=== PATIENT | male | born 1945 | race Two or more races ===

== ENCOUNTER 2017-10-03 17:17 | Emergency (ER) | payer OTHER, MEDICARE ==
--- NOTE | 2017-10-03 17:43 | RADIOLOGY REPORT (SQ) ---
EXAM DESCRIPTION: CT HEAD WITHOUT COMPLETED DATE/TIME: 10/03/2017 5:32 pm REASON FOR STUDY: will go to [facility] after ct stroke alert COMPARISON: 09/05/2016 TECHNIQUE: Axial images acquired through the brain without intravenous contrast. Images reviewed wi th bone, brain and subdural windows. Images stored on PACS. All CT scanners at this facility use dose modulation, iterative reconstruction, and/or weight based d osing when appropriate to reduce radiation dose to as low as reasonably achievable (ALARA). [facility]: Dose Right [facility]: CareDose [facility]: Dose Right [facility]: Teradose 4D [facility]: [employer] Technologies RADIATION DOSE: CT Rad equipment meets quality standard of care and radiation dose reduction techniq ues were employed. CTDIvol: 64.6 mGy. DLP: 1163 mGy-cm. mGy. LIMITATIONS: None. FINDINGS: VENTRICLES: Normal size and contour. CEREBRUM: No masses. No hemorrhage. No midline shift. No evidence for acute infarction. Normal gra y/white matter differentiation. No areas of low density in the white matter. CEREBELLUM: No masses. No hemorrhage. No alteration of density. No evidence for acute infarction. EXTRAAXIAL SPACES: No fluid collections. No masses. ORBITS AND GLOBE: No intra- or extraconal masses. Normal contour of globe without masses. CALVARIUM: No fracture. PARANASAL SINUSES: No fluid or mucosal thickening. SOFT TISSUES: No mass or hematoma. OTHER: No other significant finding. IMPRESSION: NO ACUTE INTRACRANIAL PROCESS. NO SIGNIFICANT CHANGE FROM PRIOR STUDY. EVIDENCE OF ACUTE STROKE: NO. COMMENT: Pertinent positive or negative findings of the imaging study reported as a CRITICAL EXAM t o ER PROVIDER at17:36 on 10/03/2017. Category of Critical Exam: CODE STROKE Quality ID # [id number]: Final reports with documentation of one or more dose reduction techniques (e.g., Au tomated exposure control, adjustment of the mA and/or kV according to patient size, use of iterative reconstruction technique) TECHNICAL DOCUMENTATION: JOB ID: [id number]- All Rights Reserved
--- NOTE | 2017-10-03 17:49 | RADIOLOGY REPORT (SQ) ---
EXAM DESCRIPTION: CHEST SINGLE VIEW COMPLETED DATE/TIME: 10/03/2017 5:31 pm REASON FOR STUDY: will go to [facility] after ct stroke alert COMPARISON: 09/06/2016 EXAM PARAMETERS: NUMBER OF VIEWS: One view. TECHNIQUE: Single frontal radiographic view of the chest acquired. RADIATION DOSE: NA LIMITATIONS: None. FINDINGS: LUNGS AND PLEURA: No new opacities, masses or pneumothorax. No pleural effusion. MEDIASTINUM AND HILAR STRUCTURES: No masses. Contour normal. HEART AND VASCULAR STRUCTURES: Heart stable in size. Normal vasculature. BONES: No acute findings. HARDWARE: Stable. OTHER: No other significant finding. IMPRESSION: NO ACUTE RADIOGRAPHIC FINDING IN THE CHEST. NO SIGNIFICANT CHANGE FROM PRIOR STUDY. TECHNICAL DOCUMENTATION: JOB ID: [id number] [employer]- All Rights Reserved
[2017-10-03 17:56] LABS: INTERNATIONAL RATION (INR) 0.95; PROTHROMBIN TIME 13.4 SEC (11.4-15.4)
[2017-10-03 17:57] LABS: ABSOLUTE EOSINOPHILS # (AUTO) 0.1 10^3/uL (0.0-0.6); ABSOLUTE LYMPHOCYTES (AUTO) 1.4 10^3/uL (0.5-4.7); ABSOLUTE MONOCYTES (AUTO) 0.7 10^3/uL (0.1-1.4); ABSOLUTE NEUT (AUTO) 4.1 10^3/uL (1.7-8.2); BASOPHILS % (AUTO) 0.5 % (0-2); EOSINOPHILS % (AUTO) 1.4 % (0-6); HEMOGLOBIN 13.9 g/dL (13.5-17.0); LYMPHOCYTES % (AUTO) 22.4 % (13-45); MEAN CORPUSCULAR HEMOGLOBIN 30.9 pg (27.0-33.4); MEAN CORPUSCULAR HGB CONC 33.9 g/dL (32.0-36.0); MEAN CORPUSCULAR VOLUME 91 fl (80-97); MONOCYTES % (AUTO) 10.6 % (3-13); PARTIAL THROMBOPLASTIN TIME 27.2 SEC (23.5-35.8); PLATELET COUNT 283 10^3/uL (150-450); RED BLOOD COUNT 4.49 10^6/uL (4.35-5.55); RED CELL DISTRIBUTION WIDTH 13.3 % (11.5-14.0); SEGMENTED NEUTROPHILS % (AUTO) 65.1 % (42-78); TOTAL CELLS COUNTED % (AUTO) 100 %; WHITE BLOOD COUNT 6.3 10^3/uL (4.0-10.5)
[2017-10-03 18:09] LABS: ALANINE AMINOTRANSFERASE 33 U/L (21-72); ALBUMIN 4.9 g/dL (3.5-5.0); ALKALINE PHOSPHATASE 117 U/L (38-126); ANION GAP 14 (5-19); ASPARTATE AMINO TRANSFERASE 28 U/L (17-59); BILIRUBIN,DIRECT 0.2 mg/dL (0.0-0.4); BILIRUBIN,TOTAL 0.4 mg/dL (0.2-1.3); BLOOD UREA NITROGEN 26 mg/dL (7-20); CALCIUM 10.1 mg/dL (8.4-10.2); CARBON DIOXIDE 28 mmol/L (22-30); CHLORIDE 101 mmol/L (98-107); CREATINE KINASE 79 U/L (55-170); GLUCOSE 103 mg/dL (75-110); POTASSIUM 4.3 mmol/L (3.6-5.0); TOTAL PROTEIN 7.7 g/dL (6.3-8.2)
--- NOTE | 2017-10-03 18:11 | ER Document Report ---
ED General - General Mode of Arrival: Ambulatory Information source: Patient TRAVEL OUTSIDE OF THE [place]. IN LAST 30 DAYS: No <SURINDER MENDEZ - Last Filed: 10/03/17 23:44> <JA STANLEY - Last Filed: 10/03/17 23:52> - General Chief Complaint: S/S of Possible Stroke Stated Complaint: POSSIBLE STROKE Time Seen by Provider: 10/03/17 17:48 Notes: Patient is a 71 year old male with a history of PTSD, anxiety, depression, chronic back pain and Parkinson's Disease presents to the emergency department accompanied by due to a syncopal episode. Patient states that he got up this morning to go to the bathroom when felt himself falling and proceeded to have a syncopal episode. states the patient was unconscious for around 1-2 minutes and woke up confused. states she believes the patient has been overwhelmed due to their being a lot of family around lately. Patients associated symptoms include trouble speaking and light headedness. Patient denies any new or changed medication, numbness, nausea, vomiting, fevers, diarrhea, abdominal pain, chest pain, trouble breathing or blurry vision. Patient states that his chronic back pain is more noticeable since the fall. (SURINDER MENDEZ) - Related Data Allergies/Adverse Reactions: No Known Allergies Allergy (Verified 09/05/16 14:34) Past Medical History - General Information source: Patient, Relative - Social History Smoking Status: Never Smoker Cigarette use (# per day): No Chew tobacco use (# tins/day): No Smoking Education Provided: No Frequency of alcohol use: None Family History: Reviewed & Not Pertinent - Past Medical History Cardiac Medical History: Reports: Hx Coronary Artery Disease, Hx Hypercholesterolemia, Hx Hypertension Pulmonary Medical History: Reports: Hx Pneumonia - Aug 2016, Hx Sleep Apnea - CPAP machine at home. Neurological Medical History: Reports: Hx Cerebrovascular Accident - RESIDUAL LEFT SIDED WEAKNESS Endocrine Medical History: Reports: Hx Diabetes Mellitus Type 2 Psychiatric Medical History: Reports: Hx Anxiety, Hx Depression, Hx Post Traumatic Stress Disorder Past Surgical History: Reports: Hx Cardiac Catheterization, Hx Coronary Artery Bypass Graft - 3 VESSEL 08-23-12, Hx Open Heart Surgery, Hx Orthopedic Surgery - Right knee replacement, Left shoulder surgery - Immunizations Hx Diphtheria, Pertussis, Tetanus Vaccination: No Hx Pneumococcal Vaccination: 09/25/14 <SURINDER MENDEZ - Last Filed: 10/03/17 23:44> Review of Systems - Review of Systems Constitutional: No symptoms reported EENT: No symptoms reported Cardiovascular: See HPI, Lightheaded Respiratory: No symptoms reported Gastrointestinal: No symptoms reported Genitourinary: No symptoms reported Male Genitourinary: No symptoms reported Musculoskeletal: No symptoms reported Skin: No symptoms reported Hematologic/Lymphatic: No symptoms reported Neurological/Psychological: See HPI, Lost consciousness -: Yes All other systems reviewed and negative <VANESSASURINDER KRAFT - Last Filed: 10/03/17 23:44> Physical Exam <SURINDER MENDEZ - Last Filed: 10/03/17 23:44> <JA STANLEY - Last Filed: 10/03/17 23:52> - Vital signs Vitals: Pulse Resp BP Pulse Ox 60 11 L 125/72 96 10/03/17 17:37 10/03/17 17:37 10/03/17 17:37 10/03/17 17:37 - Notes Notes: GENERAL: Alert, interacts well. No acute distress. HEAD: Normocephalic, atraumatic. EYES: Pupils equal, round, and reactive to light. Extraocular movements intact. ENT: Oral mucosa moist, tongue midline. NECK: Full range of motion. Supple. Trachea midline. LUNGS: Clear to auscultation bilaterally, no wheezes, rales, or rhonchi. No respiratory distress. HEART: Regular rate and rhythm. No murmurs, gallops, or rubs. ABDOMEN: Soft, non-tender. Non-distended. Bowel sounds present in all 4 quadrants. EXTREMITIES: Moves all 4 extremities spontaneously, tremor in right hand. No edema, radial and dorsalis pedis pulses 2/4 bilaterally. No cyanosis. NEUROLOGICAL: Alert and oriented x3. Intermittent stutter which is baseline according to . Cranial nerves II through XII grossly intact. Biceps and patellar DTRs 2+ bilaterally. PSYCH: Normal affect, normal mood. SKIN: Warm, dry, normal turgor. No rashes or lesions noted. (SURINDER MENDEZ) Course - Laboratory Result Diagrams: 10/03/17 17:40 10/03/17 17:40 <VANESSASURINDER - Last Filed: 10/03/17 23:44> - Laboratory Result Diagrams: 10/03/17 17:40 10/03/17 17:40 <JA STANLEY - Last Filed: 10/03/17 23:52> - Re-evaluation Re-evalutation: 10/03/17 20:20 Is CBC unremarkable, CMP shows slightly increased creatinine compared to baseline but no true significant change, today is 1.43 as opposed to a year ago when it was 1.35. Cardiac enzymes negative, urinalysis shows trace ketones and a specific gravity 1.025 which supports dehydration with intravascular volume depletion. EKG is nonischemic, he has not had an ectopy nor any dysrhythmias while on the monitor. Patient has a third miller in [place], recommended that he follow- up with cardiology within the next 48 hours to have a Holter monitor placed. Patient was hydrated with fluids and will be discharged to home. Suspect orthostatic syncope. No evidence of ischemic cardiac disease. No evidence of seizure. CT scan of the head is negative for any bleed, no suspicion for stroke, chest x- ray negative for any acute process as well. (JA STANLEY) - Vital Signs Vital signs: Temp Pulse Resp BP Pulse Ox 60 19 115/61 97 10/03/17 17:37 10/03/17 20:31 10/03/17 20:31 10/03/17 20:31 - Laboratory Laboratory results interpreted by me: 10/03/17 10/03/17 17:40 19:53 BUN 26 H Creatinine 1.43 H Est GFR ( Amer) 59 L Est GFR (Non-Af Amer) 49 L Urine Ketones TRACE H - EKG Interpretation by Me Additional EKG results interpreted by me: 10/03/17 20:21 EKG shows sinus bradycardia at a rate of 59 with a first-degree AV block, normal axis, no ST segment elevations or depressions, no T-wave inversions, there is nonspecific T-wave flattening in aVL per my interpretation. (JA STANLEY) Discharge <SURINDER MENDEZ - Last Filed: 10/03/17 23:44> <JA STANLEY - Last Filed: 10/03/17 23:52> - Discharge Clinical Impression: Orthostatic syncope, Dehydration Diabetes mellitus type II, controlled Qualifiers: Diabetes mellitus complication status: with neurologic complications Diabetes mellitus complication detail: with unspecified neuropathy Diabetes mellitus termite control service representative insulin use: without termite control service representative use Qualified Code(s): E11.40 - Type 2 diabetes mellitus with diabetic neuropathy, unspecified Hypertension Qualifiers: Hypertension type: essential hypertension Qualified Code(s): I10 - Essential ( primary) hypertension Condition: Stable Disposition: HOME, SELF-CARE Additional Instructions: Today you were very slightly dehydrated and have a slight worsening of your chronic kidney disease, there is no significant change. This will likely resolve with fluids. Please have your kidneys followed up by her primary care provider within the next month. Because you passed out and you are 71 years old I would talk to your third miller about a Holter monitor or an event monitor. This helps to track your heart rate to make sure you are not going into any abnormal or dangerous rhythms. Please discuss this with them within the next 48 hours. Referrals: RJ LUNA MD [Primary Care Provider] - Follow up in 1 week Scribe Attestation: 10/03/17 23:52 I personally performed the services described in the documentation, reviewed and edited the documentation which was dictated to the scribe in my presence, and it accurately records my words and actions. (JA STANLEY) ED NIH Stroke Scale - NIH Stroke Scale *: 1. NIH scale should be completed with appropriate accompanying assessment tools. *: 2. The NIH should reflect what the patient is capable of doing and should not be coached by the clinician. 1a. Level of Consciousness: 0=Alert;keenly responsive -: 1=Drowsy -: 2=Obtunded -: 3=Coma/unresponsive or reflex to noxious stimuli. 1a. Responses: 0 1b. Orientation Questions: a. What month is it? -: b. How old are you? -: 0=Answers both questions correctly. -: 1=Answers one question correctly or patient is intubated or has orotracheal trauma. -: 2=Answers neither question correctly. 1b. Responses: 0 1c. Response to commands: a. Open and close eyes? -: b. Shoe Caser and release hand? -: Credit is given despite weakness. Demonstration of task is permitted. Substitute command if hands cannot be used. -: 0=Performs both tasks correctly -: 1=Performs one task correctly -: 2=Performs neither task correctly 1c. Responses: 0 2. Gaze: Establish eye contact and instruct patient to "Follow my finger" -: 0=Normal -: 1=Partial gaze palsy. Gaze is abnormal in one or both eyes, but where forced deviation or total gaze paresis is not present. -: 2=Forced deviation or total gaze paresis. 2. Responses: 0 3. Visual Schilling: Sees fingers in all four quadrants. -: 0=No visual loss. -: 1=Partial hemianopsia. -: 2=Complete hemianopsia. -: 3=Bilateral hemianopsia (including Cortical blindness) 3. Responses: 0 4. Facial Movement: Instruct patient to: -: a. Show me your teeth -: b. Raise your eyebrows -: c. Close your eyes -: d. Smile -: 0=Normal symmetrical movement -: 1=Minor paralysis (flattened nasolabial fold, asymmetry on smiling). -: 2=Partial paralysis (total or near total paralysis of lower face). -: 3=Complete paralysis of upper and lower face 4. Responses: 0 5. Motor functions (left arm): Alternate sides and extend each arm with palms down (90 degrees if sitting or 45 degrees for supine). -: 0=No drift;limb holds for full 10 seconds. -: 1=Drift; limb holds but drifts down before full 10 seconds, but does not hit bed. -: 2=Some effort against gravity; limb cannot get to or maintain position. -: 3=No effort against gravity; limb falls. -: 4=No movement. -: UN=Amputation, joint fusion, explain in comments. 5. Responses (left arm): 0 5. Motor Functions (right arm): Alternate sides and extend each arm with palms down (90 degrees if sitting or 45 degrees for supine). -: 0=No drift;limb holds for full 10 seconds. -: 1=Drift; limb holds but drifts down before full 10 seconds, but does not hit bed. -: 2=Some effort against gravity; limb cannot get to or maintain position. -: 3=No effort against gravity; limb falls. -: 4=No movement. -: UN=Amputation, joint fusion, explain in comments. 5. Responses (right arm): 0 6. Motor Functions (left leg): With patient lying supine, alternate sides and extend each leg (30 degrees always while supine). -: 0=No drift, leg holds position for full 5 seconds -: 1=Drift; leg falls before full 5 seconds but does not hit bed. -: 2=Some effort against gravity, leg falls to bed but some effort against gravity. -: 3=No effort against gravity, leg falls to bed immediately. -: 4=No movement. -: UN=Amputation, joint fusion; explain in comments. 6. Responses (left leg): 0 6. Motor Functions (right leg): With patient lying supine, alternate sides and extend each leg (30 degrees always while supine). -: 0=No drift, leg holds position for full 5 seconds -: 1=Drift; leg falls before full 5 seconds but does not hit bed. -: 2=Some effort against gravity, leg falls to bed but some effort against gravity. -: 3=No effort against gravity, leg falls to bed immediately. -: 4=No movement. -: UN=Amputation, joint fusion; explain in comments. 6. Responses (right leg): 0 7. Limb Ataxia: With eyes open instruct patient to: -: a. "Touch your finger to your nose". -: b. "Touch your heel to your guan" -: 0=Absent -: 1=Present in one limb. -: 2=Present in two limbs. -: UN=Amputation or joint fusion; explain in comments. 7. Responses: 0 8. Sensory: Test sensation using pinprick or noxious stimuli. Test as many body parts as possible. -: 0=Normal;no sensory loss -: 1=Mile to moderate sensory loss (patient feels pin prick but is less sharp on affected side). -: 2=Severe or total sensory loss. 8. Responses: 0 9. Best Language: Instruct patient to: -: a. "Describe what you see in this picture." -: b. "Name the items in this picture." -: c. "Read these sentences." -: 0=No aphasia, normal -: 1=Mild to moderate aphasia. -: 2=Severe aphasia -: 3=Mute, global aphasia, no usable speech or auditory comprehension. 9. Responses: 0 10. Articulation, Dysarthia: Instruct patient to: -: "Read these words" or "Repeat these words" -: 0=Normal -: 1=Mild to moderate; patient may slur some words but can be understood without difficulty. -: 2=Severe; patients speech so slurred as to be unintelligible in the absence of dysphasia. -: UN=Intubated or other physical barrier, explain in comments. 10. Responses: 0 11. Extinction or inattention: 0=No abnormality -: 1= Visual, tactile, auditory, spatial, or personal inattention or extinction to bilateral simulation in one or the sensory modalities. -: 2=Profound milan-inattention or milan-inattention to more than one modality; does not recognize own hand. 11. Responses: 0 Total Score: 0 <SURINDER MENDEZ - Last Filed: 10/03/17 23:44> ED [employer]/Exc Criteria - Date/Time patient last known well: Date/Time: 10/03/2017 - Inclusion Criteria: 1: Patient presented to ED within 3 hours of acute ischemic stroke symptom onset ? -: Yes 2: Did baseline CT exclude intracranial hemorrhage and/or other risk factors? 3: Is the age of the patient 18 years of age or greater? -: Yes : If any of the above questions are answered "NO" then stop, patient is not a candidate for Alteplase, : If all of the above questions are answered "YES" then continue with Exclusion Criteria. <SURINDER MENDEZ - Last Filed: 10/03/17 23:44> Scribe Documentation - Scribe Written by Scribe:: Sebastian Seals, 10/03/2017 18:28 acting as scribe for Dr.:: Stanley <SURINDER MENDEZ - Last Filed: 10/03/17 23:44>
[2017-10-03 18:21] LABS: CREATINE KINASE MB 0.75 ng/mL (<4.55)
[2017-10-03 18:22] LABS: TROPONIN I < 0.012 ng/mL
--- NOTE | 2017-10-03 18:33 | EKG REPORT ---
SEVERITY:- NORMAL ECG - SINUS RHYTHM : Confirmed by: Isiah Mayers MD 03-Oct-2017 18:32:51
[2017-10-03] MEDS ORDERED: HYDROCODONE/ACETAMINOPHEN 5-325 MG TABLET PO ONE (18:41)
[2017-10-03] MEDS ORDERED: NORMAL SALINE 1000 ML 1,000 ML IV ONE (19:18)
--- NOTE | 2017-10-03 19:19 | RADIOLOGY REPORT (SQ) ---
EXAM DESCRIPTION: L SPINE WHOLE COMPLETED DATE/TIME: 10/03/2017 7:07 pm REASON FOR STUDY: fall, worsened low back pain COMPARISON: None. NUMBER OF VIEWS: Five views including obliques. TECHNIQUE: AP, lateral, oblique, and sacral radiographic images acquired of the lumbar spine. LIMITATIONS: None. FINDINGS: MINERALIZATION: Normal. SEGMENTATION: Normal. No transitional anatomy. ALIGNMENT: Normal. VERTEBRAE: Maintained height. No fracture or worrisome bone lesion. DISCS: Multilevel disc space narrowing with osteophytes, most pronounced at L4-L5. POSTERIOR ELEMENTS: Pedicles and facets are intact. No pars defect or posterior arch defects. Facet arthropathy is present. HARDWARE: None in the spine. PARASPINAL SOFT TISSUES: Normal. PELVIS: Intact as visualized. No fractures or worrisome bone lesions. SI joints intact. OTHER: No other significant finding. IMPRESSION: SPONDYLOSIS WITHOUT BONE LESION OR FRACTURE. TECHNICAL DOCUMENTATION: JOB ID: [id number] [employer]- All Rights Reserved
[2017-10-03 20:11] LABS: APPEARANCE,URINE CLEAR; BILIRUBIN,URINE NEGATIVE (NEGATIVE); COLOR,URINE YELLOW; GLUCOSE, URINE NEGATIVE (NEGATIVE); KETONES,URINE TRACE mg/dL (NEGATIVE); LEUKOCYTE ESTERASE,URINE NEGATIVE (NEGATIVE); NITRITE,URINE NEGATIVE (NEGATIVE); PROTEIN,URINE NEGATIVE (NEGATIVE); URINE SPECIFIC GRAVITY 1.025; UROBILINOGEN,URINE NEGATIVE mg/dL (<2.0)
[2017-10-03 20:58] VITALS: BP 115/61
== END 2017-10-03 20:50 | disposition home or self-care (01) ==
LOC: ER 17:17
DX: E86.0 Dehydration (principal); R55 Syncope and collapse; G20 Parkinson's disease; E11.40 Type 2 diabetes mellitus with diabetic neuropathy, unspecified; I44.0 Atrioventricular block, first degree; M54.9 Dorsalgia, unspecified; G89.29 Other chronic pain; I25.10 Atherosclerotic heart disease of native coronary artery without angina pectoris; I10 Essential (primary) hypertension; Z86.73 Personal history of transient ischemic attack (TIA), and cerebral infarction without residual deficits; Z95.1 Presence of aortocoronary bypass graft
CPT/HCPCS: 93005; 99285; 96360; 36415; 82553; 82550; 85025; 85610; 85730; 80053; 81001; 84484; 71045; 72110; 70450; 93010; J7030

== ENCOUNTER 2017-10-09 09:58 | Inpatient (IN) | payer OTHER, MEDICARE ==
--- NOTE | 2017-10-09 10:48 | ER Document Report ---
ED Respiratory Problem - General Chief Complaint: Shortness Of Breath Stated Complaint: SHORTNESS OF BREATH Time Seen by Provider: 10/09/17 10:32 Information source: Patient TRAVEL OUTSIDE OF THE [place] IN LAST 30 DAYS: No - HPI Patient complains to provider of: Short of breath Notes: Patient is a 71 year old male with a history of PTSD, anxiety, depression, chronic back pain , Parkinson's Disease and cardiac bypass presents to the emergency department accompanied by due to shortness of breath seemed to increase yesterday. He denies history of CHF, myocardial infarction, pulmonary embolus. Since yesterday if they have noticed increasing shortness of breath compared to normal which had been only exertional. He has had cough feels like he has mucus that he cannot clear from his throat but no productive sputum or hemoptysis. There is been no fever and no new pain. As the reports he has some mild dementia she assists with history. She believes he is dizzy as he seems somewhat unsteady. He was here approximately a week ago for a syncopal episode/fall. He denies any new pain currently which includes chest pain. There is no syncope at this point. He does not smoke. Primary care physician is Dr. Gatica. No recent vomiting, diarrhea, dysuria or hematuria. He has no prior history of oxygen dependency. - Related Data Allergies/Adverse Reactions: No Known Allergies Allergy (Verified 09/05/16 14:34) Past Medical History - Social History Smoking Status: Never Smoker Family History: Reviewed & Not Pertinent - Past Medical History Cardiac Medical History: Reports: Hx Coronary Artery Disease, Hx Hypercholesterolemia, Hx Hypertension Pulmonary Medical History: Reports: Hx Pneumonia - Aug 2016, Hx Sleep Apnea - CPAP machine at home. Neurological Medical History: Reports: Hx Cerebrovascular Accident - RESIDUAL LEFT SIDED WEAKNESS Endocrine Medical History: Reports: Hx Diabetes Mellitus Type 2 Renal/ Medical History: Denies: Hx Peritoneal Dialysis GI Medical History: Denies: Hx Pancreatitis Psychiatric Medical History: Reports: Hx Anxiety, Hx Depression, Hx Post Traumatic Stress Disorder Past Surgical History: Reports: Hx Cardiac Catheterization, Hx Coronary Artery Bypass Graft - 3 VESSEL 08-23-12, Hx Open Heart Surgery, Hx Orthopedic Surgery - Right knee replacement, Left shoulder surgery - Immunizations Hx Diphtheria, Pertussis, Tetanus Vaccination: No Hx Pneumococcal Vaccination: 09/25/14 Review of Systems - Review of Systems -: Yes All other systems reviewed and negative Physical Exam - Vital signs Vitals: Temp Pulse BP Pulse Ox 100.0 F 64 152/119 H 94 10/09/17 10:04 10/09/17 10:04 10/09/17 10:04 10/09/17 10:04 Interpretation: Hypertensive - Notes Notes: Physical Exam: GENERAL: VS as per nursing doc. Well-appearing, well-nourished and in no acute distress. Oxygen saturation 91% on 3 L/min nasal cannula HEAD: Atraumatic, normocephalic. EYES: Pupils equal round and reactive to light, extraocular movements intact, sclera anicteric, moderate bilateral conjunctival injection without discharge. ENT: Nares patent, oropharynx clear without exudates. Moist mucous membranes. NECK: Normal range of motion, supple without lymphadenopathy. LUNGS: Breath sounds are decreased bilaterally with coarseness and some right- sided rales noted. HEART: Normal S1S2. Regular rate and rhythm without murmurs. Equal peripheral pulses. ABDOMEN: Soft, non-tender. EXTREMITIES: Normal range of motion. No calf tenderness. Negative Homans. Trace bilateral pitting edema. NEUROLOGICAL: Cranial nerves grossly intact. Normal speech. Normal sensory and motor exams. No gross cerebellar abnormalities. Though he is alert, he has poor recall. PSYCH: Normal mood, normal affect. SKIN: Warm, dry, no cyanosis, no splinter hemorrhages. Cap refill < 2 sec. Course - Re-evaluation Re-evalutation: 10/09/17 14:[address] Nieves contacted and will evaluate for admission. 10/09/17 14:32 - Vital Signs Vital signs: Temp Pulse Resp BP Pulse Ox 100.0 F 64 152/119 H 98 10/09/17 10:04 10/09/17 10:04 10/09/17 10:04 10/09/17 10:26 - Laboratory Result Diagrams: 10/09/17 10:34 10/09/17 10:34 Laboratory results interpreted by me: 10/09/17 10/09/17 10/09/17 10:34 10:34 10:34 RBC 3.44 L Hgb 10.7 L Hct 31.8 L Seg Neutrophils % 86.6 H Lymphocytes % 6.0 L Absolute Lymphocytes 0.4 L D-Dimer Carbonic Acid ABG pH ABG pCO2 ABG pO2 ABG HCO3 ABG Total CO2 ABG O2 Saturation Chloride 108 H BUN 22 H Creatinine 1.38 H Est GFR (Non-Af Amer) 51 L Glucose 139 H ALT 20 L Alkaline Phosphatase 134 H NT-Pro-B Natriuret Pep 9430 H 10/09/17 10/09/17 10:34 11:57 RBC Hgb Hct Seg Neutrophils % Lymphocytes % Absolute Lymphocytes D-Dimer 1.68 H Carbonic Acid 0.73 L ABG pH 7.52 H ABG pCO2 24.4 L ABG pO2 55.8 L ABG HCO3 19.6 L ABG Total CO2 20.3 L ABG O2 Saturation 92.6 L Chloride BUN Creatinine Est GFR (Non-Af Amer) Glucose ALT Alkaline Phosphatase NT-Pro-B Natriuret Pep Discharge - Discharge Clinical Impression: Dyspnea, Hypoxia Condition: Fair Disposition: ADMITTED INPATIENT Admitting Provider: Hospitalist Unit Admitted: Telemetry Referrals: RJ BROWN MD [Primary Care Provider] - Follow up as needed
[2017-10-09] MEDS ORDERED: IPRATROPIUM/ALBUTEROL 0.5-2.5 MG/3 ML AMPUL NEB ONE (10:49)
--- NOTE | 2017-10-09 11:28 | RADIOLOGY REPORT (SQ) ---
EXAM DESCRIPTION: CHEST SINGLE VIEW COMPLETED DATE/TIME: 10/09/2017 11:20 am REASON FOR STUDY: Dyspnea COMPARISON: 10/03/2017 NUMBER OF VIEWS: One view. TECHNIQUE: Single frontal radiographic view of the chest acquired. LIMITATIONS: None. FINDINGS: LUNGS AND PLEURA: No opacities, masses or pneumothorax. No pleural effusion. MEDIASTINUM AND HILAR STRUCTURES: No masses or contour abnormality. HEART AND VASCULATURE: Cardiac enlargement. Va mild vascular congestion. BONES: No acute findings. HARDWARE: Stable. OTHER: No other significant finding. IMPRESSION: CARDIAC ENLARGEMENT. MILD VASCULAR CONGESTION. TECHNICAL DOCUMENTATION: JOB ID: [id number] [employer]- All Rights Reserved
[2017-10-09 11:36] LABS: ALANINE AMINOTRANSFERASE 20 U/L (21-72); ALBUMIN 3.7 g/dL (3.5-5.0); ALKALINE PHOSPHATASE 134 U/L (38-126); ANION GAP 14 (5-19); ASPARTATE AMINO TRANSFERASE 45 U/L (17-59); BILIRUBIN,DIRECT 0.4 mg/dL (0.0-0.4); BLOOD UREA NITROGEN 22 mg/dL (7-20); CALCIUM 9.6 mg/dL (8.4-10.2); CARBON DIOXIDE 22 mmol/L (22-30); CHLORIDE 108 mmol/L (98-107); GLUCOSE 139 mg/dL (75-110); POTASSIUM 4.1 mmol/L (3.6-5.0); SODIUM 144.3 mmol/L (137-145); TOTAL PROTEIN 6.4 g/dL (6.3-8.2)
[2017-10-09 11:39] LABS: ABSOLUTE LYMPHOCYTES (AUTO) 0.4 10^3/uL (0.5-4.7); ABSOLUTE MONOCYTES (AUTO) 0.4 10^3/uL (0.1-1.4); ABSOLUTE NEUT (AUTO) 5.5 10^3/uL (1.7-8.2); BASOPHILS % (AUTO) 0.4 % (0-2); EOSINOPHILS % (AUTO) 0.1 % (0-6); HEMATOCRIT 31.8 % (37.9-51.0); HEMOGLOBIN 10.7 g/dL (13.5-17.0); MEAN CORPUSCULAR HEMOGLOBIN 31.2 pg (27.0-33.4); MEAN CORPUSCULAR HGB CONC 33.8 g/dL (32.0-36.0); MEAN CORPUSCULAR VOLUME 92 fl (80-97); MONOCYTES % (AUTO) 6.9 % (3-13); PLATELET COUNT 226 10^3/uL (150-450); RED BLOOD COUNT 3.44 10^6/uL (4.35-5.55); RED CELL DISTRIBUTION WIDTH 13.4 % (11.5-14.0); SEGMENTED NEUTROPHILS % (AUTO) 86.6 % (42-78); TOTAL CELLS COUNTED % (AUTO) 100 %; WHITE BLOOD COUNT 6.4 10^3/uL (4.0-10.5)
[2017-10-09 11:48] LABS: TROPONIN I 0.017 ng/mL
[2017-10-09 12:27] LABS: ARTERIAL BLOOD BASE EXCESS -2.2 mmol/L; ARTERIAL BLOOD FIO2 3L; ARTERIAL BLOOD H2CO3 0.73 mmol/L (1.05-1.35); ARTERIAL BLOOD HCO3 19.6 mmol/L (20-26); ARTERIAL BLOOD O2 SATURATION 92.6 % (94-98); ARTERIAL BLOOD PCO2 24.4 mmHg (35-45); ARTERIAL BLOOD PH 7.52 (7.35-7.45); ARTERIAL BLOOD PO2 55.8 mmHg (80-100); ARTERIAL BLOOD TOTAL CO2 20.3 mmol/L (23-27)
--- NOTE | 2017-10-09 13:50 | RADIOLOGY REPORT (SQ) ---
EXAM DESCRIPTION: CTA CHEST COMPLETED DATE/TIME: 10/09/2017 1:35 pm REASON FOR STUDY: Dyspnea, Elevated D-Dimer COMPARISON: 09/06/2015 TECHNIQUE: CT scan of the chest performed using helical scanning technique with dynamic intravenous contrast injection. Images reviewed with lung, soft tissue and bone windows. Reconstructed coronal and sagittal MPR images reviewed. Additional 3 dimensional post-processing performed to develop Maximal Intensity Projection images (MA P). All images stored on PACS. All CT scanners at this facility use dose modulation, iterative reconstruction, and/or weight based d osing when appropriate to reduce radiation dose to as low as reasonably achievable (ALARA). [facility]: Dose Right [facility]: CareDose [facility]: Dose Right [facility]: Teradose 4D [facility]: [employer] CONTRAST TYPE AND DOSE: contrast/concentration: Isovue 370.00 mg/ml; Total Contrast Delivered: 79.0 ml; Total Saline Delivered: 97.0 ml Contrast bolus optimized for the pulmonary arteries. Not diagnostic for the aorta. RENAL FUNCTION: BUN 22 creatinine 1.4 RADIATION DOSE: CT Rad equipment meets quality standard of care and radiation dose reduction techniq ues were employed. CTDIvol: 16.5 - 26.2 mGy. DLP: 961 mGy-cm. . LIMITATIONS: Motion. FINDINGS: LUNGS AND PLEURA: Subsegmental atelectasis dependent lower lobes. Trace right pleural eff usion. AORTA AND GREAT VESSELS: No aneurysm. Contrast bolus not optimized for the aorta. HEART: No pericardial effusion. Cardiomegaly. PULMONARY ARTERIES: No emboli visualized in the main pulmonary arteries or the segmental branches. HILAR AND MEDIASTINAL STRUCTURES: No identified masses or abnormal nodes. HARDWARE: None in the chest. UPPER ABDOMEN: No significant findings. Limited exam. THYROID AND OTHER SOFT TISSUES: No masses. No adenopathy. BONES: No acute or significant finding. 3D MIPS: Confirm above findings. OTHER: No other significant finding. IMPRESSION: No evidence of pulmonary embolus. COMMENT: Quality ID # [id number]: Final reports with documentation of one or more dose reduction techniques (e.g., Automated exposure control, adjustment of the mA and/or kV according to patient size, use of iterative reconstruction technique) TECHNICAL DOCUMENTATION: JOB ID: [id number] [employer]- All Rights Reserved
[2017-10-09] MEDS ORDERED: METHYLPREDNISOLONE INJ 125 MG/2 ML SDV IV ONE (14:07)
[2017-10-09] MEDS ORDERED: OXYCODONE-ACETAMINOPHEN 5-325 MG TABLET PO PRN (14:30)
[2017-10-09] MEDS ORDERED: FUROSEMIDE INJ/PF 20 MG/2 ML SDV IV SCH (14:30)
[2017-10-09] MEDS ORDERED: ZOLPIDEM TARTRATE 5 MG TABLET PO PRN (14:30)
[2017-10-09] MEDS ORDERED: ACETAMINOPHEN 325 MG TABLET PO PRN (14:30)
[2017-10-09] MEDS ORDERED: ONDANSETRON HCL INJ/PF 4 MG/2 ML SDV IV PRN (14:30)
--- NOTE | 2017-10-09 15:24 | PDOC H&P ---
History of Present Illness Admission Date/PCP: RJ BROWN MD Patient complains of: Shortness of breath worse since yesterday History of Present Illness: BAYLEE ROLLINS is a 71 year old male presents to ED accompanied by the who is the primary provider of complaints. Accordingly patient had been having progressive shortness of breath since yesterday. Patient also had been having nonproductive cough. Patient also had been complaining to with chills. Otherwise no other complaints voiced by . [place] arrival to emergency room pulse ox was 50% and patient required to be placed on 3 L of O2. Patient does carry a history of sleep apnea and accordingly he uses the CPAP on a regular basis. Patient has history of diabetes, congestive heart failure, Parkinson's disease and hypertension. He did have three-vessel CABG however cannot tell if he indeed had a heart attack. Due to comorbidities, presentation and demonstration on elevated BNP the hospitalist service was contacted and prompted to admit for further management. Past Medical History Cardiac Medical History: Reports: Congestive Heart Failure, Coronary Artery Disease, Hyperlipidema, Hypertension Pulmonary Medical History: Reports: Pneumonia - Aug 2016, Sleep Apnea - CPAP machine at home. EENT Medical History: Reports: None Neurological Medical History: Reports: Other - TIA, Parkinson's disease Endocrine Medical History: Reports: Diabetes Mellitus Type 2 Denies: Hypothyroidism Renal/ Medical History: Reports: Chronic Kidney Disease Malignancy Medical History: Denies: Breast Cancer, Cervical Cancer Musculoskeltal Medical History: Reports: Arthritis Skin Medical History: Reports: None Psychiatric Medical History: Reports: Depression, Post Traumatic Stress Disorder Traumatic Medical History: Reports: None Hematology: Reports: Anemia Denies: Hemophilia, Sickle Cell Disease Infectious Medical History: Reports: None Past Surgical History Past Surgical History: Reports: Cardiac Catheterization, Coronary Artery Bypass Graft - 3 VESSEL 08-23-12, Orthopedic Surgery - Right knee replacement, Left shoulder surgery Social History Information Source: Relative Lives with: Spouse/Significant other Smoking Status: Never Smoker Frequency of Alcohol Use: None Hx Recreational Drug Use: No Drugs: None Hx Prescription Drug Abuse: No - Advance Directive Resuscitation Status: Full Code Family History Family History: CAD, DM, Hypertension, Malignancy Parental Family History Reviewed: Yes Children Family History Reviewed: Yes Sibling(s) Family History Reviewed.: Yes Medication/Allergy Home Medications: Atorvastatin Calcium [Lipitor 40 mg Tablet] 40 mg PO QHS 10/09/17 Brexpiprazole [Rexulti] 1 mg PO DAILY 10/09/17 Bupropion HCl [Bupropion HCl Sr] 100 mg PO DAILY 10/09/17 Carbidopa/Levodopa [Sinemet 25-100 mg Tablet] 2 tab PO Q8 10/09/17 Clopidogrel Bisulfate [Plavix 75 mg Tablet] 75 mg PO DAILY 10/09/17 Fluoxetine HCl [Prozac] 40 mg PO Q12 10/09/17 Gabapentin [Neurontin 300 mg Capsule] 300 mg PO Q12 10/09/17 Memantine HCl [Namenda Xr] 28 mg PO DAILY 10/09/17 Metoprolol Tartrate [Lopressor 50 mg Tablet] 50 mg PO DAILY 10/09/17 Oxcarbazepine [Trileptal] 300 mg PO Q12 10/09/17 Sitagliptin Phosphate [Januvia 50 mg Tablet] 50 mg PO DAILY 10/09/17 Tolterodine Tartrate [Detrol La] 4 mg PO DAILY 10/09/17 Allergies/Adverse Reactions: No Known Allergies Allergy (Verified 09/05/16 14:34) Review of Systems ROS unobtainable: Due to mental status Physical Exam Vital Signs: Temp Pulse Resp BP Pulse Ox 100.0 F 64 152/119 H 98 10/09/17 10:04 10/09/17 10:04 10/09/17 10:04 10/09/17 10:26 Intake & Output 10/08/17 10/09/17 10/10/17 06:59 06:59 06:59 Weight 97.4 kg General appearance: PRESENT: cooperative, mild distress, morbidly obese Head exam: PRESENT: atraumatic, normocephalic Eye exam: PRESENT: conjunctiva pink, EOMI, PERRLA Ear exam: PRESENT: normal external ear exam Mouth exam: PRESENT: moist Neck exam: PRESENT: full ROM, lymphadenopathy. ABSENT: JVD, tenderness Respiratory exam: PRESENT: crackles, decreased breath sounds Cardiovascular exam: PRESENT: RRR. ABSENT: diastolic murmur, systolic murmur GI/Abdominal exam: PRESENT: normal bowel sounds, soft. ABSENT: guarding, tenderness Rectal exam: PRESENT: deferred Extremities exam: PRESENT: full ROM. ABSENT: joint swelling, pedal edema Musculoskeletal exam: PRESENT: ambulatory Neurological exam: PRESENT: alert, oriented to person, oriented to place, CN II- XII grossly intact Psychiatric exam: PRESENT: anxious Skin exam: PRESENT: intact, normal color Results Laboratory Results: 10/09/17 10:34 10/09/17 10:34 10/09/17 10/09/17 10/09/17 10:34 10:34 11:57 WBC 6.4 RBC 3.44 L Hgb 10.7 L Hct 31.8 L MCV 92 MCH 31.2 MCHC 33.8 RDW 13.4 Plt Count 226 Seg Neutrophils % 86.6 H Lymphocytes % 6.0 L Monocytes % 6.9 Eosinophils % 0.1 Basophils % 0.4 Absolute Neutrophils 5.5 Absolute Lymphocytes 0.4 L Absolute Monocytes 0.4 Absolute Eosinophils 0.0 Absolute Basophils 0.0 Carbonic Acid 0.73 L HCO3/H2CO3 Ratio 26:1 ABG pH 7.52 H ABG pCO2 24.4 L ABG pO2 55.8 L ABG HCO3 19.6 L ABG O2 Saturation 92.6 L ABG Base Excess -2.2 FiO2 3L Sodium 144.3 Potassium 4.1 Chloride 108 H Carbon Dioxide 22 Anion Gap 14 BUN 22 H Creatinine 1.38 H Est GFR ( Amer) > 60 Est GFR (Non-Af Amer) 51 L Glucose 139 H Calcium 9.6 Total Bilirubin 1.0 AST 45 ALT 20 L Alkaline Phosphatase 134 H Total Protein 6.4 Albumin 3.7 10/09/17 10:34 Troponin I 0.017 NT-Pro-B Natriuret Pep 9430 H Impressions: Chest X-Ray 10/09/17 10:48 IMPRESSION: CARDIAC ENLARGEMENT. MILD VASCULAR CONGESTION. Chest/Abdomen CTA 10/09/17 12:47 IMPRESSION: No evidence of pulmonary embolus. Assessment & Plan - Diagnosis (1) CHF (congestive heart failure) Qualifiers: Congestive heart failure type: unspecified Congestive heart failure chronicity: acute Qualified Code(s): I50.9 - Heart failure, unspecified Is this a current diagnosis for this admission?: Yes Plan: Will order an echocardiogram to determine whether systolic versus diastolic. Patient to be placed on IV Lasix, Norvasc, lisinopril , nitropaste and will hold of beta-blockade due to mildly heart rate. (2) Anemia Qualifiers: Anemia type: unspecified type Qualified Code(s): D64.9 - Anemia, unspecified Is this a current diagnosis for this admission?: Yes Plan: To pursue anemia panel (3) Acute respiratory failure with hypoxemia Is this a current diagnosis for this admission?: Yes Plan: To provide oxygen supplementation and will place on CPAP (4) CKD (chronic kidney disease) stage 2, GFR 60-89 ml/min Is this a current diagnosis for this admission?: Yes Plan: Long-standing and will trend (5) Diabetes Qualifiers: Diabetes mellitus type: type 2 Diabetes mellitus complication status: with kidney complications Diabetes mellitus complication detail: with chronic kidney disease Diabetes mellitus fdc insulin use: without fdc use Chronic kidney disease stage: stage 2 (mild) Qualified Code(s): E11.22 - Type 2 diabetes mellitus with diabetic chronic kidney disease; N18.2 - Chronic kidney disease, stage 2 (mild); N18.2 - Chronic kidney disease, stage 2 (mild) Is this a current diagnosis for this admission?: Yes Plan: Patient is on Januvia as outpatient. Will place on Humalog sliding scale with bedside glucose before meals and at bedtime (6) PTSD (post-traumatic stress disorder) Is this a current diagnosis for this admission?: Yes Plan: To continue outpatient regimen (7) Hypertensive urgency Is this a current diagnosis for this admission?: Yes Plan: To place on Norvasc, lisinopril, Nitropaste and follow up response - Time Time Spent: 50 to 70 Minutes Medications reviewed and adjusted accordingly: Yes Anticipated discharge: Home Within: within 72 hours - Inpatient Certification Based on my medical assessment, after consideration of the patient's comorbidities, presenting symptoms, or acuity I expect that the services needed warrant INPATIENT care.: Yes I certify that my determination is in accordance with my understanding of Medicare's requirements for reasonable and necessary INPATIENT services [42 CFR 412.3e].: Yes Medical Necessity: Significant Comorbidiites Make Outpatient Treatment Too Risky - IV Lasix, Need For Continuous Telemetry Monitoring
[2017-10-09] MEDS ORDERED: NITROGLYCERIN 2% OINTMENT 1 GM PACKET TP ONE (16:00)
[2017-10-09] MEDS ORDERED: LISINOPRIL 10 MG TABLET PO ONE (16:00)
[2017-10-09] MEDS ORDERED: AMLODIPINE BESYLATE 5 MG TABLET PO ONE (16:00)
[2017-10-09 16:04] LABS: A TYPE INFLUENZA AG POSITIVE (NEGATIVE); B INFLUENZA AG NEGATIVE (NEGATIVE)
--- NOTE | 2017-10-09 17:22 | EKG REPORT ---
SEVERITY:- ABNORMAL ECG - ACCELERATED JUNCTIONAL ESCAPE RHYTHM : Confirmed by: Jacquelin Beckwith 09-Oct-2017 17:21:28
[2017-10-09] MEDS: FUROSEMIDE INJ/PF 40 MG/4 ML SDV IV SCH (18:58)
[2017-10-09 19:15] LABS: APPEARANCE,URINE CLEAR; BILIRUBIN,URINE NEGATIVE (NEGATIVE); COLOR,URINE YELLOW; GLUCOSE, URINE NEGATIVE (NEGATIVE); KETONES,URINE NEGATIVE (NEGATIVE); LEUKOCYTE ESTERASE,URINE NEGATIVE (NEGATIVE); NITRITE,URINE NEGATIVE (NEGATIVE); PROTEIN,URINE 30 mg/dL (NEGATIVE); URINE SPECIFIC GRAVITY 1.058
[2017-10-09] MEDS: NITROGLYCERIN 2% OINTMENT 1 GM PACKET TP SCH (23:55)
[2017-10-09] MEDS: HEPARIN SOD (PORCINE) 5,000 UNIT/ML 1 ML SYRINGE SUBCUT SCH (23:56)
[2017-10-10] MEDS: NITROGLYCERIN 2% OINTMENT 1 GM PACKET TP SCH ×3 (04:52→17:35)
[2017-10-10] MEDS: HEPARIN SOD (PORCINE) 5,000 UNIT/ML 1 ML SYRINGE SUBCUT SCH ×3 (04:52→21:11)
[2017-10-10] MEDS: FUROSEMIDE INJ/PF 40 MG/4 ML SDV IV SCH ×2 (04:52→17:38)
[2017-10-10 06:32] LABS: ABSOLUTE RETICS # 0.071 10^6/uL (0.028-0.122); RETICULOCYTE COUNT (AUTO) 2.03 % (0.66-2.85)
[2017-10-10 07:01] LABS: IRON(TIBC) 15.4 ug/dL (49-181); MAGNESIUM 2.4 mg/dL (1.6-2.3)
[2017-10-10 08:55] LABS: FOLATE > 20.00 ng/mL (>2.76)
[2017-10-10] MEDS ORDERED: SORBITOL 70% SOLUTION 30 ML UDC PO PRN (09:15)
[2017-10-10] MEDS ORDERED: BENZONATATE 100 MG CAPSULE PO PRN (09:15)
[2017-10-10] MEDS ORDERED: (PENDING PHARMACY ID) (Oxcarbazepine [Trileptal] 300 MG) PO SCH (10:00)
[2017-10-10] MEDS ORDERED: (PENDING PHARMACY ID) (Bupropion Hcl [Bupropion Hcl Sr] 100 MG) PO SCH (10:00)
[2017-10-10] MEDS ORDERED: (PENDING PHARMACY ID) (Tolterodine Tartrate [Detrol La] 4 MG) PO SCH (10:00)
[2017-10-10] MEDS ORDERED: (PENDING PHARMACY ID) (Memantine Hcl [Namenda Xr] 28 MG) PO SCH (10:00)
[2017-10-10] MEDS ORDERED: (PENDING PHARMACY ID) (Brexpiprazole [Rexulti] 1 MG) PO SCH (10:00)
[2017-10-10] MEDS: POLYETHYLENE GLYCOL 3350 POWDER 17 GM/1 PACKET PO SCH (10:56)
[2017-10-10] MEDS: LISINOPRIL 10 MG TABLET PO SCH (10:57)
[2017-10-10] MEDS: GUAIFENESIN 600 MG TABLET.SA PO SCH ×2 (10:57→21:11)
[2017-10-10] MEDS: GABAPENTIN 300 MG CAPSULE PO SCH ×2 (10:57→21:10)
[2017-10-10] MEDS: FLUOXETINE HCL 20 MG CAPSULE PO SCH ×2 (11:00→21:10)
[2017-10-10] MEDS: TOLTERODINE TARTRATE 1 MG TABLET PO SCH ×2 (11:01→21:10)
[2017-10-10] MEDS: CLOPIDOGREL BISULFATE 75 MG TABLET PO SCH (11:02)
[2017-10-10] MEDS: BUPROPION HCL 100 MG TABLET PO SCH ×2 (11:02→17:37)
[2017-10-10] MEDS: AMLODIPINE BESYLATE 5 MG TABLET PO SCH (11:02)
[2017-10-10] MEDS: OXCARBAZEPINE 150 MG TABLET PO SCH ×2 (11:02→21:10)
--- NOTE | 2017-10-10 13:08 | PDOC PROGRESS REPORT ---
Subjective Progress Note for:: 10/10/17 Subjective:: She relates that breathing is better. He complains of having cough with some white phlegm and constipation. Review of systems All organ systems evaluated and negative except as in subjective All significant laboratories and diagnostics have been reviewed Reason For Visit: ACUTE CHF,ANEMIA Physical Exam Vital Signs: Temp Pulse Resp BP Pulse Ox 97.9 F 51 L 28 H 142/88 H 97 10/10/17 08:06 10/10/17 08:06 10/10/17 08:06 10/10/17 08:06 10/10/17 08:06 Intake & Output 10/09/17 10/10/17 10/11/17 06:59 06:59 06:59 Intake Total 25 Output Total 350 Balance -325 Weight 97.9 kg General appearance: PRESENT: no acute distress, cooperative, obese Head exam: PRESENT: atraumatic, normocephalic Eye exam: PRESENT: EOMI, PERRLA Ear exam: PRESENT: normal external ear exam, TM's normal bilaterally Mouth exam: PRESENT: moist, neck supple Neck exam: PRESENT: full ROM, lymphadenopathy, tenderness. ABSENT: JVD Respiratory exam: PRESENT: clear to auscultation norm. ABSENT: tachypnea, unlabored Cardiovascular exam: PRESENT: bradycardia, RRR. ABSENT: diastolic murmur, systolic murmur Vascular exam: PRESENT: normal capillary refill GI/Abdominal exam: PRESENT: normal bowel sounds, soft. ABSENT: tenderness Extremities exam: PRESENT: full ROM. ABSENT: joint swelling, pedal edema Musculoskeletal exam: PRESENT: ambulatory Neurological exam: PRESENT: alert, awake, oriented to person, oriented to place , oriented to time Psychiatric exam: PRESENT: appropriate affect, normal mood Skin exam: PRESENT: intact, normal color Results Laboratory Results: 10/09/17 10/10/17 10/10/17 19:00 05:53 05:53 Retic Count (auto) 2.03 Absolute Retic 0.071 Magnesium 2.4 H Iron 15.4 L TIBC 264 % Saturation 6 Ferritin 204.00 Vitamin B12 395.0 Folate > 20.00 TSH Urine Color YELLOW Urine Appearance CLEAR Urine pH 6.0 Ur Specific [place] 1.058 Urine Protein 30 H Urine Glucose (UA) NEGATIVE Urine Ketones NEGATIVE Urine Blood NEGATIVE Urine Nitrite NEGATIVE Ur Leukocyte Esterase NEGATIVE Urine WBC (Auto) 1 Urine RBC (Auto) 0 10/10/17 05:53 Retic Count (auto) Absolute Retic Magnesium Iron TIBC % Saturation Ferritin Vitamin B12 Folate TSH 1.41 Urine Color Urine Appearance Urine pH Ur Specific [place] Urine Protein Urine Glucose (UA) Urine Ketones Urine Blood Urine Nitrite Ur Leukocyte Esterase Urine WBC (Auto) Urine RBC (Auto) 10/09/17 10/09/17 16:18 22:24 Troponin I 0.018 0.027 Impressions: Chest X-Ray 10/09/17 10:48 IMPRESSION: CARDIAC ENLARGEMENT. MILD VASCULAR CONGESTION. Chest/Abdomen CTA 10/09/17 12:47 IMPRESSION: No evidence of pulmonary embolus. Assessment & Plan - Diagnosis (1) CHF (congestive heart failure) Qualifiers: Congestive heart failure type: unspecified Congestive heart failure chronicity: acute Qualified Code(s): I50.9 - Heart failure, unspecified Is this a current diagnosis for this admission?: Yes Plan: Echocardiogram had been ordered to determine whether systolic versus diastolic and is pending. Continue IV Lasix, Norvasc, lisinopril , nitropaste. Continue holding beta-linda due to bradycardia which is likely due to SSRI. Clinically improving. (2) Anemia Qualifiers: Anemia type: unspecified type Qualified Code(s): D64.9 - Anemia, unspecified Is this a current diagnosis for this admission?: Yes Plan: Anemia panel results noted. More consistent of chronic disease (3) Acute respiratory failure with hypoxemia Is this a current diagnosis for this admission?: Yes Plan: Continue CPAP at bedtime and would request nurse to wean off oxygen as tolerated (4) CKD (chronic kidney disease) stage 2, GFR 60-89 ml/min Is this a current diagnosis for this admission?: Yes Plan: Long-standing and stable. To trend (5) Diabetes Qualifiers: Diabetes mellitus type: type 2 Diabetes mellitus complication status: with kidney complications Diabetes mellitus complication detail: with chronic kidney disease Diabetes mellitus long-term insulin use: without long-term use Chronic kidney disease stage: stage 2 (mild) Qualified Code(s): E11.22 - Type 2 diabetes mellitus with diabetic chronic kidney disease; N18.2 - Chronic kidney disease, stage 2 (mild); N18.2 - Chronic kidney disease, stage 2 (mild) Is this a current diagnosis for this admission?: Yes Plan: Patient is on Januvia as outpatient. Continue Humalog sliding scale with bedside glucose before meals and at bedtime (6) PTSD (post-traumatic stress disorder) Is this a current diagnosis for this admission?: Yes Plan: To continue outpatient regimen (7) Hypertensive urgency Is this a current diagnosis for this admission?: Yes Plan: Resolved and to continue adjusting antihypertensive medication (8) Constipation Qualifiers: Constipation type: unspecified constipation type Qualified Code(s): K59.00 - Constipation, unspecified Is this a current diagnosis for this admission?: Yes Plan: To place on bowel regimen (9) Parkinson disease Is this a current diagnosis for this admission?: Yes Plan: Continue outpatient regimen - Time Time Spent with patient: 15-24 minutes Medications reviewed and adjusted accordingly: Yes Anticipated discharge: Home Within: within 72 hours - Inpatient Certification Based on my medical assessment, after consideration of the patient's comorbidities, presenting symptoms, or acuity I expect that the services needed warrant INPATIENT care.: Yes I certify that my determination is in accordance with my understanding of Medicare's requirements for reasonable and necessary INPATIENT services [42 CFR 412.3e].: Yes Medical Necessity: Need Close Monitoring Due to Risk of Patient Decompensation, Need For Continuous Telemetry Monitoring - IV diuresis
[2017-10-10] MEDS: ATORVASTATIN CALCIUM 40 MG TABLET PO SCH (21:10)
[2017-10-11] MEDS: NITROGLYCERIN 2% OINTMENT 1 GM PACKET TP SCH ×4 (00:38→18:08)
[2017-10-11] MEDS: HEPARIN SOD (PORCINE) 5,000 UNIT/ML 1 ML SYRINGE SUBCUT SCH ×3 (05:50→22:15)
[2017-10-11] MEDS: FUROSEMIDE INJ/PF 40 MG/4 ML SDV IV SCH ×2 (05:50→18:09)
[2017-10-11 06:23] LABS: ABSOLUTE LYMPHOCYTES (AUTO) 0.9 10^3/uL (0.5-4.7); ABSOLUTE MONOCYTES (AUTO) 0.4 10^3/uL (0.1-1.4); ABSOLUTE NEUT (AUTO) 4.3 10^3/uL (1.7-8.2); BASOPHILS % (AUTO) 0.3 % (0-2); HEMATOCRIT 36.3 % (37.9-51.0); HEMOGLOBIN 12.2 g/dL (13.5-17.0); LYMPHOCYTES % (AUTO) 16.5 % (13-45); MEAN CORPUSCULAR HEMOGLOBIN 30.8 pg (27.0-33.4); MEAN CORPUSCULAR HGB CONC 33.6 g/dL (32.0-36.0); MEAN CORPUSCULAR VOLUME 92 fl (80-97); MONOCYTES % (AUTO) 7.7 % (3-13); PLATELET COUNT 206 10^3/uL (150-450); RED BLOOD COUNT 3.96 10^6/uL (4.35-5.55); RED CELL DISTRIBUTION WIDTH 13.5 % (11.5-14.0); SEGMENTED NEUTROPHILS % (AUTO) 75.5 % (42-78); TOTAL CELLS COUNTED % (AUTO) 100 %; WHITE BLOOD COUNT 5.6 10^3/uL (4.0-10.5)
[2017-10-11 06:35] LABS: ANION GAP 17 (5-19); BLOOD UREA NITROGEN 25 mg/dL (7-20); CALCIUM 9.2 mg/dL (8.4-10.2); CARBON DIOXIDE 21 mmol/L (22-30); CHLORIDE 106 mmol/L (98-107); GLUCOSE 114 mg/dL (75-110); POTASSIUM 3.8 mmol/L (3.6-5.0)
[2017-10-11] MEDS: POLYETHYLENE GLYCOL 3350 POWDER 17 GM/1 PACKET PO SCH (10:29)
[2017-10-11] MEDS: TOLTERODINE TARTRATE 1 MG TABLET PO SCH ×2 (10:30→22:14)
[2017-10-11] MEDS: LISINOPRIL 10 MG TABLET PO SCH (10:30)
[2017-10-11] MEDS: AMLODIPINE BESYLATE 5 MG TABLET PO SCH (10:30)
[2017-10-11] MEDS: FLUOXETINE HCL 20 MG CAPSULE PO SCH ×2 (10:30→22:15)
[2017-10-11] MEDS: BUPROPION HCL 100 MG TABLET PO SCH ×2 (10:31→18:06)
[2017-10-11] MEDS: GUAIFENESIN 600 MG TABLET.SA PO SCH ×2 (10:31→22:15)
[2017-10-11] MEDS: GABAPENTIN 300 MG CAPSULE PO SCH ×2 (10:31→22:15)
[2017-10-11] MEDS: CLOPIDOGREL BISULFATE 75 MG TABLET PO SCH (10:31)
[2017-10-11] MEDS: OXCARBAZEPINE 150 MG TABLET PO SCH ×2 (10:31→22:15)
--- NOTE | 2017-10-11 14:50 | PDOC PROGRESS REPORT ---
Subjective Progress Note for:: 10/11/17 Subjective:: States he is doing well He has minimal shortness of breath no chest pain No fever no chills No nausea no vomiting Reason For Visit: ACUTE CHF,ANEMIA Physical Exam Vital Signs: Temp Pulse Resp BP Pulse Ox 97.8 F 71 19 107/55 L 94 10/11/17 11:56 10/11/17 11:56 10/11/17 11:56 10/11/17 11:56 10/11/17 11:56 Intake & Output 10/10/17 10/11/17 10/12/17 00:59 00:59 00:59 Intake Total 1645 322 Output Total 1725 200 Balance -80 122 Weight 97.9 kg 97.9 kg 97.5 kg General appearance: PRESENT: no acute distress, cooperative, well-developed, well-nourished Head exam: PRESENT: atraumatic, normocephalic Eye exam: PRESENT: conjunctiva pink, EOMI, PERRLA. ABSENT: scleral icterus Respiratory exam: PRESENT: clear to auscultation norm. ABSENT: rales, rhonchi, wheezes Cardiovascular exam: PRESENT: RRR. ABSENT: diastolic murmur, rubs, systolic murmur Pulses: PRESENT: normal dorsalis pedis pul GI/Abdominal exam: PRESENT: normal bowel sounds, soft. ABSENT: distended, guarding, mass, organolmegaly, rebound, tenderness Extremities exam: PRESENT: full ROM. ABSENT: calf tenderness, clubbing, pedal edema Neurological exam: PRESENT: alert, awake, oriented to person, oriented to place , oriented to time, oriented to situation, CN II-XII grossly intact. ABSENT: motor sensory deficit Skin exam: PRESENT: dry, intact, warm. ABSENT: cyanosis, rash Results Laboratory Results: 10/11/17 05:30 10/11/17 05:30 10/10/17 10/11/17 10/11/17 05:53 05:30 05:30 WBC 5.6 RBC 3.96 L Hgb 12.2 L Hct 36.3 L MCV 92 MCH 30.8 MCHC 33.6 RDW 13.5 Plt Count 206 Seg Neutrophils % 75.5 Lymphocytes % 16.5 Monocytes % 7.7 Eosinophils % 0.0 Basophils % 0.3 Absolute Neutrophils 4.3 Absolute Lymphocytes 0.9 Absolute Monocytes 0.4 Absolute Eosinophils 0.0 Absolute Basophils 0.0 Sodium 144.0 Potassium 3.8 Chloride 106 Carbon Dioxide 21 L Anion Gap 17 BUN 25 H Creatinine 1.30 H Est GFR ( Amer) > 60 Est GFR (Non-Af Amer) 55 L Glucose 114 H Calcium 9.2 Magnesium 2.0 Transferrin 194 L 10/09/17 10/09/17 16:18 22:24 Troponin I 0.018 0.027 Impressions: Chest X-Ray 10/09/17 10:48 IMPRESSION: CARDIAC ENLARGEMENT. MILD VASCULAR CONGESTION. Chest/Abdomen CTA 10/09/17 12:47 IMPRESSION: No evidence of pulmonary embolus. Assessment & Plan - Diagnosis (1) Anemia Qualifiers: Anemia type: unspecified type Qualified Code(s): D64.9 - Anemia, unspecified Is this a current diagnosis for this admission?: Yes Plan: Chronic anemia secondary to iron deficiency and vitamin B12 deficiency Will initiate replacement (2) CKD (chronic kidney disease) stage 2, GFR 60-89 ml/min Is this a current diagnosis for this admission?: Yes Plan: Stable GFR is 55 (3) Diabetes Qualifiers: Diabetes mellitus type: type 2 Diabetes mellitus complication status: with kidney complications Diabetes mellitus complication detail: with chronic kidney disease Diabetes mellitus residential insulin use: without terminal operations manager use Chronic kidney disease stage: stage 2 (mild) Qualified Code(s): E11.22 - Type 2 diabetes mellitus with diabetic chronic kidney disease; N18.2 - Chronic kidney disease, stage 2 (mild); N18.2 - Chronic kidney disease, stage 2 (mild) Is this a current diagnosis for this admission?: Yes Plan: Well-controlled hemoglobin A1c 6.2 (4) CHF (congestive heart failure) Qualifiers: Congestive heart failure type: unspecified Congestive heart failure chronicity: acute Qualified Code(s): I50.9 - Heart failure, unspecified Is this a current diagnosis for this admission?: Yes Plan: Last echocardiogram performed in 2016 showed left ventricular concentric hypertrophy, normal systolic function On admission patient had high BNP and chest x-ray suggestive of CHF He did respond to diuresis with Lasix A repeat echocardiogram was performed; results are pending at time of this dictation Continue present management (5) Acute respiratory failure with hypoxemia Is this a current diagnosis for this admission?: Yes Plan: Likely acute on chronic respiratory failure with hypoxemia secondary to acute on chronic diastolic CHF, obstructive sleep apnea Continue O2 supplementation (6) CAD (coronary artery disease) Qualifiers: Coronary Disease-Associated Artery/Lesion type: unspecified vessel or lesion type [place] vs. transplanted heart: [place] heart Associated angina: with unspecified angina Qualified Code(s): I25.119 - Atherosclerotic heart disease of [place] coronary artery with unspecified angina pectoris Is this a current diagnosis for this admission?: Yes Plan: Initial EKG is normal sinus rhythm without acute changes Cardiac enzymes were intermediate range Patient has no ongoing chest pain We will obtain records from his prior stress August 2017 performed at [facility] Dr. Lozano Continue patient's prior management - Time Time Spent with patient: Patient may be discharged in 2448 hrs. if he remains stable Time Spent with patient: 25-34 minutes
--- NOTE | 2017-10-11 19:09 | XCELERA REPORT ---
[address] [address] Transthoracic Echocardiogram Report Name: BAYLEE ROLLINS Age: 71 yrs Gender: Male : 1945 Patient Status: Inpatient Patient Location: [address] [place] [address] Study Date: 10/11/2017 10:14 AM Height: 65 in Weight: 214 lb BSA: 2.0 m2 Procedure: A two-dimensional transthoracic echocardiogram with color flow Doppler was performed. The study was technically difficult with many images being suboptimal in quality. Reason For Study: CHF History: CHF. Ordering Physician: REGI LEE Performed By: Maria Eugenia Peguero Interpretation Summary The left ventricle is normal in size. There is normal left ventricular wall thickness. LV EF is 65% Left ventricular systolic function is normal. Doppler measurements suggest normal left ventricular diastolic function The left ventricular wall motion is normal. There is no thrombus. There is no ventricular septal defect visualized. The right ventricle is not well visualized secondary to technical limitations The right atrium is normal. The left atrium is moderately dilated. The interatrial septum is intact with no evidence for an atrial septal defect. There is no evidence of mitral valve prolapse. There is no mitral valve stenosis. There is a trace amount of mitral regurgitation There is no aortic valve stenosis There is no LVOT obstruction. No aortic regurgitation is present. There is no tricuspid stenosis. There is a trace amount of tricuspid regurgitation Unable to calculate RVSP due to insufficient TR jet. The aortic root is normal size. There is no pericardial effusion. MMode/2D Measurements & Calculations RVDd: 3.9 cm LVIDd: 4.8 cm FS: 37.4 % Ao root diam: 2.5 cm IVSd: 1.0 cm LVIDs: 3.0 cm EDV(Teich): 109.1 ml LVPWd: 0.96 cm ESV(Teich): 35.7 ml Ao root area: 4.8 cm2 EF(Teich): 67.3 % Doppler Measurements & Calculations MV E max ayesha: MV dec slope: Ao V2 max: LV V1 max P.8 cm/sec 160.9 cm/sec 5.5 mmHg MV A max ayesha: 627.7 cm/sec2 Ao max PG: LV V1 max: 74.1 cm/sec MV dec time: 10.4 mmHg 117.0 cm/sec MV E/A: 1.4 0.17 sec PA V2 max: 139.4 cm/sec PA max P.8 mmHg Left Ventricle The left ventricle is normal in size. There is normal left ventricular wall thickness. LV EF is 65%. Left ventricular systolic function is normal. Doppler measurements suggest normal left ventricular diastolic function. The left ventricular wall motion is normal. There is no thrombus. There is no ventricular septal defect visualized. Right Ventricle The right ventricle is not well visualized secondary to technical limitations. Atria The right atrium is normal. The left atrium is moderately dilated. The interatrial septum is intact with no evidence for an atrial septal defect. Mitral Valve There is no evidence of mitral valve prolapse. There is no vegetation seen on the mitral valve. There is no mitral valve stenosis. There is a trace amount of mitral regurgitation. Aortic Valve The aortic valve is mildly calcified. There is no aortic valvular vegetation. There is no aortic valve stenosis. There is no LVOT obstruction. No aortic regurgitation is present. Tricuspid Valve There is no tricuspid stenosis. There is a trace amount of tricuspid regurgitation. Unable to calculate RVSP due to insufficient TR jet. Pulmonic Valve There is no pulmonic valvular stenosis. There is no pulmonic valvular regurgitation. Great Vessels The aortic root is normal size. Effusions There is no pericardial effusion. : REGI LEE > Ivania Arauz
[2017-10-11] MEDS: ATORVASTATIN CALCIUM 40 MG TABLET PO SCH (22:15)
[2017-10-12] MEDS: NITROGLYCERIN 2% OINTMENT 1 GM PACKET TP SCH ×4 (00:48→17:58)
[2017-10-12] MEDS: FUROSEMIDE INJ/PF 40 MG/4 ML SDV IV SCH ×2 (06:12→17:57)
[2017-10-12] MEDS: HEPARIN SOD (PORCINE) 5,000 UNIT/ML 1 ML SYRINGE SUBCUT SCH ×3 (06:13→21:45)
[2017-10-12] MEDS: CYANOCOBALAMIN (VITAMIN B-12) 1,000 MCG TABLET PO SCH (09:22)
[2017-10-12] MEDS: POLYETHYLENE GLYCOL 3350 POWDER 17 GM/1 PACKET PO SCH (09:22)
[2017-10-12] MEDS: OXCARBAZEPINE 150 MG TABLET PO SCH ×2 (09:22→21:45)
[2017-10-12] MEDS: FERROUS SULFATE 325 MG TABLET PO SCH (09:22)
[2017-10-12] MEDS: GUAIFENESIN 600 MG TABLET.SA PO SCH ×2 (09:23→21:46)
[2017-10-12] MEDS: CLOPIDOGREL BISULFATE 75 MG TABLET PO SCH (09:23)
[2017-10-12] MEDS: TOLTERODINE TARTRATE 1 MG TABLET PO SCH ×2 (09:23→21:45)
[2017-10-12] MEDS: FLUOXETINE HCL 20 MG CAPSULE PO SCH ×2 (09:23→21:45)
[2017-10-12] MEDS: GABAPENTIN 300 MG CAPSULE PO SCH ×2 (09:24→21:45)
[2017-10-12] MEDS: BUPROPION HCL 100 MG TABLET PO SCH ×2 (09:24→17:59)
[2017-10-12] MEDS ORDERED: AMLODIPINE BESYLATE 5 MG TABLET PO SCH (10:00)
[2017-10-12] MEDS: LISINOPRIL 10 MG TABLET PO SCH (13:10)
--- NOTE | 2017-10-12 17:12 | PDOC PROGRESS REPORT ---
Subjective Progress Note for:: 10/12/17 Subjective:: Patient still complaining of cough that is nonproductive Shortness of breath is improved He is oxygenating adequately on room air He has had no chest pain his blood pressure is running low and blood pressure medications have been reevaluated Reason For Visit: ACUTE CHF,ANEMIA Physical Exam Vital Signs: Temp Pulse Resp BP Pulse Ox 98.3 F 70 18 115/58 L 96 10/12/17 16:00 10/12/17 16:00 10/12/17 16:00 10/12/17 16:00 10/12/17 16:00 Intake & Output 10/11/17 10/12/17 10/13/17 00:59 00:59 00:59 Intake Total 1645 1782 118 Output Total 1725 1250 Balance -80 532 118 Weight 97.9 kg 97.5 kg 97.5 kg General appearance: PRESENT: no acute distress, well-developed, well-nourished Head exam: PRESENT: atraumatic, normocephalic Eye exam: PRESENT: conjunctiva pink, EOMI, PERRLA. ABSENT: scleral icterus Neck exam: ABSENT: carotid bruit, JVD, lymphadenopathy, thyromegaly Respiratory exam: PRESENT: decreased breath sounds. ABSENT: rales, rhonchi, wheezes Cardiovascular exam: PRESENT: RRR. ABSENT: diastolic murmur, rubs, systolic murmur Vascular exam: PRESENT: normal capillary refill GI/Abdominal exam: PRESENT: normal bowel sounds, soft. ABSENT: distended, guarding, mass, organolmegaly, rebound, tenderness Extremities exam: PRESENT: full ROM. ABSENT: calf tenderness, clubbing, pedal edema Results Laboratory Results: 10/11/17 05:30 10/11/17 05:30 10/09/17 10/09/17 16:18 22:24 Troponin I 0.018 0.027 Impressions: Chest X-Ray 10/09/17 10:48 IMPRESSION: CARDIAC ENLARGEMENT. MILD VASCULAR CONGESTION. Chest/Abdomen CTA 10/09/17 12:47 IMPRESSION: No evidence of pulmonary embolus. Assessment & Plan - Diagnosis (1) Anemia Qualifiers: Anemia type: unspecified type Qualified Code(s): D64.9 - Anemia, unspecified Is this a current diagnosis for this admission?: Yes Plan: Iron deficiency and vitamin B12 deficiency chronic Replace with iron and B12 (2) CKD (chronic kidney disease) stage 2, GFR 60-89 ml/min Is this a current diagnosis for this admission?: Yes Plan: Stable (3) Diabetes Qualifiers: Diabetes mellitus type: type 2 Diabetes mellitus complication status: with kidney complications Diabetes mellitus complication detail: with chronic kidney disease Diabetes mellitus skilled nursing insulin use: without skilled nursing use Chronic kidney disease stage: stage 2 (mild) Qualified Code(s): E11.22 - Type 2 diabetes mellitus with diabetic chronic kidney disease; N18.2 - Chronic kidney disease, stage 2 (mild); N18.2 - Chronic kidney disease, stage 2 (mild) Is this a current diagnosis for this admission?: Yes (4) CHF (congestive heart failure) Qualifiers: Congestive heart failure type: unspecified Congestive heart failure chronicity: acute Qualified Code(s): I50.9 - Heart failure, unspecified Is this a current diagnosis for this admission?: Yes Plan: Acute on chronic diastolic CHF Continue Lasix IV Continue lisinopril p.o. Patient did have an echocardiogram that showed normal left ventricular function and diastolic dysfunction Troponins were in the intermediate range (5) Acute respiratory failure with hypoxemia Is this a current diagnosis for this admission?: Yes Plan: Secondary to COPD exacerbation and CHF acute on chronic diastolic Oxygenation has improved Patient does not need any nasal O2 when discharged Continue present management (6) CAD (coronary artery disease) Qualifiers: Coronary Disease-Associated Artery/Lesion type: unspecified vessel or lesion type [place] vs. transplanted heart: [place] heart Associated angina: with unspecified angina Qualified Code(s): I25.119 - Atherosclerotic heart disease of [place] coronary artery with unspecified angina pectoris Is this a current diagnosis for this admission?: Yes Plan: No evidence of an acute coronary syndrome - Time Time Spent with patient: Planning to discharge patient tomorrow with a repeat chest x-ray labs
[2017-10-12] MEDS: ATORVASTATIN CALCIUM 40 MG TABLET PO SCH (21:45)
[2017-10-13] MEDS: NITROGLYCERIN 2% OINTMENT 1 GM PACKET TP SCH ×2 (00:36→06:19)
[2017-10-13 05:01] LABS: ABSOLUTE LYMPHOCYTES (AUTO) 0.8 10^3/uL (0.5-4.7); ABSOLUTE MONOCYTES (AUTO) 0.3 10^3/uL (0.1-1.4); ABSOLUTE NEUT (AUTO) 3.5 10^3/uL (1.7-8.2); BASOPHILS % (AUTO) 0.2 % (0-2); HEMATOCRIT 36.7 % (37.9-51.0); HEMOGLOBIN 12.7 g/dL (13.5-17.0); LYMPHOCYTES % (AUTO) 17.7 % (13-45); MEAN CORPUSCULAR HEMOGLOBIN 31.2 pg (27.0-33.4); MEAN CORPUSCULAR HGB CONC 34.5 g/dL (32.0-36.0); MEAN CORPUSCULAR VOLUME 90 fl (80-97); MONOCYTES % (AUTO) 6.5 % (3-13); PLATELET COUNT 222 10^3/uL (150-450); RED BLOOD COUNT 4.07 10^6/uL (4.35-5.55); RED CELL DISTRIBUTION WIDTH 13.6 % (11.5-14.0); SEGMENTED NEUTROPHILS % (AUTO) 75.6 % (42-78); TOTAL CELLS COUNTED % (AUTO) 100 %; WHITE BLOOD COUNT 4.6 10^3/uL (4.0-10.5)
[2017-10-13 05:26] LABS: ANION GAP 13 (5-19); BLOOD UREA NITROGEN 23 mg/dL (7-20); CALCIUM 9.3 mg/dL (8.4-10.2); CARBON DIOXIDE 25 mmol/L (22-30); CHLORIDE 102 mmol/L (98-107); GLUCOSE 130 mg/dL (75-110); POTASSIUM 3.9 mmol/L (3.6-5.0); SODIUM 139.9 mmol/L (137-145)
[2017-10-13] MEDS: FUROSEMIDE INJ/PF 40 MG/4 ML SDV IV SCH (06:19)
[2017-10-13] MEDS: HEPARIN SOD (PORCINE) 5,000 UNIT/ML 1 ML SYRINGE SUBCUT SCH ×2 (06:19→13:52)
[2017-10-13] MEDS: CYANOCOBALAMIN (VITAMIN B-12) 1,000 MCG TABLET PO SCH (09:49)
[2017-10-13] MEDS: FERROUS SULFATE 325 MG TABLET PO SCH (09:49)
[2017-10-13] MEDS: OXCARBAZEPINE 150 MG TABLET PO SCH (09:50)
[2017-10-13] MEDS: CLOPIDOGREL BISULFATE 75 MG TABLET PO SCH (09:50)
[2017-10-13] MEDS: FLUOXETINE HCL 20 MG CAPSULE PO SCH (09:50)
[2017-10-13] MEDS: GABAPENTIN 300 MG CAPSULE PO SCH (09:50)
[2017-10-13] MEDS: GUAIFENESIN 600 MG TABLET.SA PO SCH (09:50)
[2017-10-13] MEDS: LISINOPRIL 10 MG TABLET PO SCH (09:51)
[2017-10-13] MEDS: TOLTERODINE TARTRATE 1 MG TABLET PO SCH (09:51)
[2017-10-13] MEDS: BUPROPION HCL 100 MG TABLET PO SCH (09:52)
[2017-10-13] MEDS: POLYETHYLENE GLYCOL 3350 POWDER 17 GM/1 PACKET PO SCH (09:52)
[2017-10-13 13:25] VITALS: BP 133/72
--- NOTE | 2017-10-16 16:28 | PDOC DISCHARGE SUMMARY ---
General - Admit/Disc Date/PCP Admission Date/Primary Care Provider: 10/09/17 14:47 RJ BROWN MD Discharge Date: 10/13/17 - Discharge Diagnosis (1) Anemia Is this a current diagnosis for this admission?: Yes (2) CKD (chronic kidney disease) stage 2, GFR 60-89 ml/min Is this a current diagnosis for this admission?: Yes (3) Diabetes Is this a current diagnosis for this admission?: Yes (4) CHF (congestive heart failure) Is this a current diagnosis for this admission?: Yes (5) Acute respiratory failure with hypoxemia Is this a current diagnosis for this admission?: Yes (6) CAD (coronary artery disease) Is this a current diagnosis for this admission?: Yes - Additional Information Resuscitation Status: Full Code Discharge Diet: Cardiac, Diabetic Discharge Activity: Activity As Tolerated, Balance Activity w/Rest, Weigh Daily Prescriptions: Cyanocobalamin (Vitamin B-12) [Vitamin B-12 1000 mcg Tablet] 2,000 mcg PO DAILY 30 Days #60 tablet Ferrous Sulfate [Feosol 325 mg Tablet] 325 mg PO DAILY 30 Days #30 tablet Furosemide [Lasix 40 mg Tablet] 40 mg PO QAM 30 Days #30 tablet Lisinopril [Prinivil 10 mg Tablet] 10 mg PO DAILY 30 Days #30 tablet Polyethylene Glycol 3350 [Miralax Powder 17 gm/Packet] 17 gm PO DAILY 30 Days # 30 powd.pack Home Medications: Atorvastatin Calcium [Lipitor 40 mg Tablet] 40 mg PO QHS 10/09/17 Brexpiprazole [Rexulti] 1 mg PO DAILY 10/09/17 Bupropion HCl [Bupropion HCl Sr] 100 mg PO DAILY 10/09/17 Carbidopa/Levodopa [Sinemet 25-100 mg Tablet] 2 tab PO Q8 10/09/17 Clopidogrel Bisulfate [Plavix 75 mg Tablet] 75 mg PO DAILY 10/09/17 Fluoxetine HCl [Prozac] 40 mg PO Q12 10/09/17 Gabapentin [Neurontin 300 mg Capsule] 300 mg PO Q12 10/09/17 Memantine HCl [Namenda Xr] 28 mg PO DAILY 10/09/17 Metoprolol Tartrate [Lopressor 50 mg Tablet] 50 mg PO DAILY 10/09/17 Oxcarbazepine [Trileptal] 300 mg PO Q12 10/09/17 Sitagliptin Phosphate [Januvia 50 mg Tablet] 50 mg PO DAILY 10/09/17 Tolterodine Tartrate [Detrol LA] 4 mg PO DAILY 10/09/17 Cyanocobalamin (Vitamin B-12) [Vitamin B-12 1000 mcg Tablet] 2,000 mcg PO DAILY 30 Days #60 tablet 10/13/17 Ferrous Sulfate [Feosol 325 mg Tablet] 325 mg PO DAILY 30 Days #30 tablet Furosemide [Lasix 40 mg Tablet] 40 mg PO QAM 30 Days #30 tablet 10/13/17 Lisinopril [Prinivil 10 mg Tablet] 10 mg PO DAILY 30 Days #30 tablet 10/13/17 Polyethylene Glycol 3350 [Miralax Powder 17 gm/Packet] 17 gm PO DAILY 30 Days # 30 powd.pack 10/13/17 History of Present Illness Patient complains of: Increasing shortness of breath History of Present Illness: BAYLEE ROLLINS is a 71-year-old male with a known history of obstructive sleep apnea on CPAP at night, CAD status post CABG, chronic diastolic CHF and Parkinson's disease who Presented to the ED with his with a history of increasing shortness of breath. Upon evaluation in the ED he was found to have significant hypoxemia and was placed on supplemental O2 He was diagnosed of acute CHF and was subsequently admitted under hospitalist service to [facility] unit Hospital Course Hospital Course: (1) Anemia Qualifiers: Anemia type: unspecified type Qualified Code(s): D64.9 - Anemia, unspecified Is this a current diagnosis for this admission?: Yes Plan: Iron deficiency and vitamin B12 deficiency chronic Replace with iron and B12 (2) CKD (chronic kidney disease) stage 2, GFR 60-89 ml/min Stable Creatinine improved 10/11/17 10/13/17 05:30 04:22 BUN 25 H 23 H Creatinine 1.30 H 1.14 (3) Diabetes Blood sugars were controlled during his hospital stay 10/11/17 10/13/17 05:30 04:22 Glucose 114 H 130 H (4) CHF (congestive heart failure) Qualifiers: Congestive heart failure type: unspecified Congestive heart failure chronicity: acute Qualified Code(s): I50.9 - Heart failure, unspecified Is this a current diagnosis for this admission?: Yes Plan: Acute on chronic diastolic CHF improved Patient was treated with Lasix IV and lisinopril p.o. Patient did have an echocardiogram that showed normal left ventricular function and diastolic dysfunction Troponins were in the intermediate range (5) Acute respiratory failure with hypoxemia Is this a current diagnosis for this admission?: Yes Plan: Secondary to COPD exacerbation and CHF acute on chronic diastolic Oxygenation has improved Patient does not need any nasal O2 when discharged Continue present management (6) CAD (coronary artery disease) Qualifiers: Coronary Disease-Associated Artery/Lesion type: unspecified vessel or lesion type [place] vs. transplanted heart: [place] heart Associated angina: with unspecified angina Qualified Code(s): I25.119 - Atherosclerotic heart disease of [place] coronary artery with unspecified angina pectoris Is this a current diagnosis for this admission?: Yes Plan: No evidence of an acute coronary syndrome Physical Exam Vital Signs: Temp Pulse Resp BP Pulse Ox 97.9 F 80 20 133/72 H 95 10/13/17 12:41 10/13/17 14:00 10/13/17 12:41 10/13/17 12:41 10/13/17 12:41 General appearance: PRESENT: no acute distress, well-developed, well-nourished Head exam: PRESENT: atraumatic, normocephalic Eye exam: PRESENT: conjunctiva pink, EOMI, PERRLA. ABSENT: scleral icterus Neck exam: ABSENT: carotid bruit, JVD, lymphadenopathy, thyromegaly Respiratory exam: PRESENT: decreased breath sounds. ABSENT: rales, rhonchi, wheezes Cardiovascular exam: PRESENT: RRR. ABSENT: diastolic murmur, rubs, systolic murmur Vascular exam: PRESENT: normal capillary refill GI/Abdominal exam: PRESENT: normal bowel sounds, soft. ABSENT: distended, guarding, mass, organolmegaly, rebound, tenderness Extremities exam: PRESENT: full ROM. ABSENT: calf tenderness, clubbing, pedal edema Results Laboratory Results: 10/13/17 04:22 10/13/17 04:22 10/09/17 10/09/17 16:18 22:24 Troponin I 0.018 0.027 10/09/17 10/10/17 22:24 05:53 Iron 15.4 L Troponin I 0.027 Vitamin B12 395.0 Impressions: Chest X-Ray 10/09/17 10:48 IMPRESSION: CARDIAC ENLARGEMENT. MILD VASCULAR CONGESTION. Chest/Abdomen CTA 10/09/17 12:47 IMPRESSION: No evidence of pulmonary embolus. Plan Discharge Plan: Patient was discharged home to follow-up with PMD within a week time At time of discharge he is stable Time Spent: Greater than 30 Minutes
== END 2017-10-13 15:03 | disposition home or self-care (01) | DRG 291 ==
LOC: ER 09:58 → EH 14:47 → 4S 23:12
PROVIDERS: ADMIT Emergency Medicine; ATTEND Emergency Medicine
DX: I13.0 Hypertensive heart and chronic kidney disease with heart failure and stage 1 through stage 4 chronic kidney disease, or unspecified chronic kidney disease (principal); J96.01 Acute respiratory failure with hypoxia; I50.33 Acute on chronic diastolic (congestive) heart failure; J44.1 Chronic obstructive pulmonary disease with (acute) exacerbation; I69.354 Hemiplegia and hemiparesis following cerebral infarction affecting left non-dominant side; I25.10 Atherosclerotic heart disease of native coronary artery without angina pectoris; E78.00 Pure hypercholesterolemia, unspecified; D64.9 Anemia, unspecified; E11.22 Type 2 diabetes mellitus with diabetic chronic kidney disease; N18.2 Chronic kidney disease, stage 2 (mild); I16.0 Hypertensive urgency; K59.00 Constipation, unspecified; F43.10 Post-traumatic stress disorder, unspecified; G47.30 Sleep apnea, unspecified; G20 Parkinson's disease; Z96.651 Presence of right artificial knee joint; Z79.01 Long term (current) use of anticoagulants; Z79.899 Other long term (current) drug therapy; Z95.5 Presence of coronary angioplasty implant and graft; Z95.1 Presence of aortocoronary bypass graft
CPT/HCPCS: 36415; 71045; 71275; 80048; 80053; 81001; 82607; 82728; 82746; 82803; 83540; 83550; 83735; 83880; 84443; 84466; 84484; 85025; 85045; 85379; 87804; 93005; 93010; 93306; 94799; 96374; 99285; J1644; J1940; J2930; J3490; J7620

== ENCOUNTER → 2018-04-12 | Outpatient (CLI) | payer MEDICARE, OTHER ==
--- NOTE | 2018-04-12 11:12 | RADIOLOGY REPORT (SQ) ---
EXAM DESCRIPTION: CT CHEST WITHOUT COMPLETED DATE/TIME: 04/12/2018 10:28 am REASON FOR STUDY: OTHER NONSPECIFIC ABNORMAL FINDING OF LUNG FIELD R91.8 OTHER NONSPECIFIC ABNORMAL FINDING OF LUNG FIELD COMPARISON: AP chest 10/09/2017, 09/06/2015, 04/12/2012 TECHNIQUE: CT scan performed of the chest without intravenous contrast. Images reviewed with lung, soft tissue and bone windows. Reconstructed coronal and sagittal MPR images reviewed. All images st ored on PACS. All CT scanners at this facility use dose modulation, iterative reconstruction, and/or weight based d osing when appropriate to reduce radiation dose to as low as reasonably achievable (ALARA). [facility]: Dose Right [facility]: CareDose [facility]: Dose Right [facility]: Teradose 4D [facility]: OnSwipe RADIATION DOSE: CT Rad equipment meets quality standard of care and radiation dose reduction techniq ues were employed. CTDIvol: 15.6 mGy. DLP: 622 mGy-cm. mGy. LIMITATIONS: No technical limitations. FINDINGS: LUNGS AND PLEURA: Just above the left hemidiaphragm, mild increased interstitial markings with thickened interlobular septa are present, best shown on axial images 90 through 94. Remainder of the lungs are otherwise unremarkable. No pleural effusion. No pneumothorax. No worris ome pulmonary nodules. HILAR AND MEDIASTINAL STRUCTURES: No identified masses or abnormal nodes. No obvious aneurysm. HEART AND VASCULAR STRUCTURES: Post CABG. No pericardial effusion. UPPER ABDOMEN: Tiny hiatal hernia. 2 mm left upper pole intrarenal nonobstructive stone. THYROID AND OTHER SOFT TISSUES: No masses. No adenopathy. BONES: No significant finding. HARDWARE: Old CABG with sternotomy OTHER: No other significant findings. IMPRESSION: Minimal thickening of the interlobular septa just above the left hemidiaphragm, nonspeci fic. TECHNICAL DOCUMENTATION: JOB ID: [id number] Quality ID # [id number]: Final reports with documentation of one or more dose reduction techniques (e.g., Au tomated exposure control, adjustment of the mA and/or kV according to patient size, use of iterative reconstruction technique) 2010 [employer]- All Rights Reserved Reading location - IP/workstation name: [facility]
== END ==
LOC: RAD 10:21
PROVIDERS: ATTEND Internal Medicine Critical Care Medicine
DX: R91.8 Other nonspecific abnormal finding of lung field (principal)
CPT/HCPCS: 71250

== ENCOUNTER 2018-07-05 16:54 | Observation (INO) | payer MEDICARE, OTHER ==
[2018-07-05] MEDS ORDERED: ASPIRIN 81 MG TABLET, CHEWABLE PO ONE (17:14)
[2018-07-05 17:37] LABS: ABSOLUTE LYMPHOCYTES (AUTO) 0.9 10^3/uL (0.5-4.7); ABSOLUTE MONOCYTES (AUTO) 0.4 10^3/uL (0.1-1.4); ABSOLUTE NEUT (AUTO) 6.9 10^3/uL (1.7-8.2); BASOPHILS % (AUTO) 0.4 % (0-2); EOSINOPHILS % (AUTO) 0.3 % (0-6); HEMATOCRIT 37.9 % (37.9-51.0); HEMOGLOBIN 12.8 g/dL (13.5-17.0); LYMPHOCYTES % (AUTO) 11.4 % (13-45); MEAN CORPUSCULAR HEMOGLOBIN 30.7 pg (27.0-33.4); MEAN CORPUSCULAR HGB CONC 33.9 g/dL (32.0-36.0); MEAN CORPUSCULAR VOLUME 91 fl (80-97); MONOCYTES % (AUTO) 4.9 % (3-13); PLATELET COUNT 233 10^3/uL (150-450); RED BLOOD COUNT 4.17 10^6/uL (4.35-5.55); RED CELL DISTRIBUTION WIDTH 13.6 % (11.5-14.0); TOTAL CELLS COUNTED % (AUTO) 100 %; WHITE BLOOD COUNT 8.3 10^3/uL (4.0-10.5)
[2018-07-05] MEDS ORDERED: ASPIRIN 325 MG TABLET PO ONE (17:59)
--- NOTE | 2018-07-05 18:00 | RADIOLOGY REPORT (SQ) ---
EXAM DESCRIPTION: CHEST SINGLE VIEW COMPLETED DATE/TIME: 07/05/2018 5:51 pm REASON FOR STUDY: bed 19 cp COMPARISON: 04/12/2018 TECHNIQUE: Single frontal radiographic view of the chest acquired. NUMBER OF VIEWS: One view. LIMITATIONS: None. FINDINGS: LUNGS AND PLEURA: No pneumothorax. Minimal left basilar subsegmental atelectasis. No con solidation or pleural effusion. MEDIASTINUM AND HILAR STRUCTURES: Stable. HEART AND VASCULAR STRUCTURES: Stable. BONES: No acute findings. HARDWARE: CABG. OTHER: No other significant finding. IMPRESSION: Minimal left basilar subsegmental atelectasis. No consolidation or pleural effusion. TECHNICAL DOCUMENTATION: JOB ID: [id number] [place]-72 2010 [employer]- All Rights Reserved Reading location - IP/workstation name: [email or web address]
--- NOTE | 2018-07-05 18:27 | ER Document Report ---
ED Cardiac - General Chief Complaint: Chest Pain Stated Complaint: CHEST PAIN, VOMITING Time Seen by Provider: 07/05/18 17:39 TRAVEL OUTSIDE OF THE [place] IN LAST 30 DAYS: No - HPI Patient complains to provider of: Other - This 72-year-old man with a history of dementia as well as Parkinson disease presents for evaluation of some chest discomfort. His notes that 2 days prior he was started on Aricept and that he had had some adverse effect of this medication in the past but is not sure what it was. He denies any recent illnesses trauma to the chest fevers or chills. He describes what feels like a tightness in the base of his chest. No cough, lightheadedness, diaphoresis, emesis, abdominal pain, dysuria, constipation, diarrhea rashes or other obvious illnesses. It has been persistent over the last day and has not improved despite the use of aspirin at home. He did take his normal 2 baby aspirin prior to arrival. He has had problems with his heart in the past including a triple bypass and is been seen by a manager quantitative Dr. Lozano previously. - Related Data Allergies/Adverse Reactions: donepezil [From Aricept] Adverse Reaction (Verified 07/06/18 06:06) Bradycardia Past Medical History - General Information source: Patient - Social History Smoking Status: Never Smoker Family History: CAD, DM, Hypertension, Malignancy Patient has suicidal ideation: No Patient has homicidal ideation: No - Past Medical History Cardiac Medical History: Reports: Hx Congestive Heart Failure, Hx Coronary Artery Disease, Hx Hypercholesterolemia, Hx Hypertension Pulmonary Medical History: Reports: Hx Pneumonia, Hx Sleep Apnea - CPAP machine at home. Neurological Medical History: Reports: Hx Cerebrovascular Accident - RESIDUAL LEFT SIDED WEAKNESS Endocrine Medical History: Reports: Hx Diabetes Mellitus Type 2. Denies: Hx Hypothyroidism Renal/ Medical History: Denies: Hx Peritoneal Dialysis GI Medical History: Denies: Hx Pancreatitis Musculoskeletal Medical History: Reports Hx Arthritis Psychiatric Medical History: Reports: Hx Anxiety, Hx Depression, Hx Post Traumatic Stress Disorder Past Surgical History: Reports: Hx Cardiac Catheterization, Hx Cardiac Surgery - TRIPLE BIPASS 2011, Hx Coronary Artery Bypass Graft - 3 VESSEL 08-23-12, Hx Open Heart Surgery, Hx Orthopedic Surgery - Right knee replacement, Left shoulder surgery - Immunizations Hx Diphtheria, Pertussis, Tetanus Vaccination: No Hx Pneumococcal Vaccination: 09/25/14 Review of Systems - Review of Systems -: Yes All other systems reviewed and negative Physical Exam - Vital signs Vitals: Temp Pulse Resp BP Pulse Ox 97.7 F 37 L 16 145/117 H 98 07/05/18 17:06 07/05/18 17:06 07/05/18 17:06 07/05/18 17:06 07/05/18 17:06 - General General appearance: Appears well In distress: None - HEENT Head: Normocephalic Eyes: Normal Conjunctiva: Normal Cornea: Normal Extraocular movements intact: Yes Eyelashes: Normal Pupils: PERRL - Respiratory Respiratory status: No respiratory distress Chest status: Nontender Breath sounds: Normal Chest palpation: Normal - Cardiovascular Rhythm: Regular, Bradycardia Heart sounds: Normal auscultation Murmur: No - Abdominal Inspection: Normal Distension: No distension Tenderness: Nontender - Back Back: Normal - Extremities General upper extremity: Normal inspection, Nontender, Normal strength, Normal temperature General lower extremity: Normal inspection, Nontender, Normal strength, Normal temperature - Neurological Neuro grossly intact: Yes Cognition: Normal Orientation: AAOx4 Hazel Coma Scale Eye Opening: Spontaneous Hazel Coma Scale Verbal: Oriented Hazel Coma Scale Motor: Obeys Commands Hazel Coma Scale Total: 15 Speech: Normal Cranial nerves: Normal Cerebellar coordination: Normal Motor strength normal: LUE, RUE, LLE, RLE Additional motor exam normals: Other - Pill-rolling tremor in the right arm at rest - Psychological Associated symptoms: Normal affect Course - Re-evaluation Re-evalutation: 07/07/18 22:11 This 72-year-old man with a history of dementia and parkinsonism was started on Aricept and presented with chest pain, was found to be bradycardic to the 38 range. Looks like he is in a junctional escape rhythm. He had an adverse event in the past as a result of this medication, as some concern that his right cardia may be a result of an adverse medication side effect however this patient does have a significant cardiac history including a triple bypass in the past does not have any known stents. We will initiate cardiac workup including troponins x2 chest x-ray etc. Patient with negative troponins, his pain is somewhat improved while in the emergency department. He has been followed by Dr. Lozano previously, contacted [place] on-call hospitalist for potential transfer initiation though we discussed that if this is simply is medication side effect would be prudent to hold him in house, contacted Dr. Jadon Jaimes who agreed for admission of this patient with discontinuation of his medication and reassessment. We will plan for this patient be admitted to the hospital for further monitoring , and management, prior to admission patient remained having a normal blood pressure, with normal cognition. His heart rate stayed between 38 and 40 during that time, he was given albuterol with some minimal improvement in his heart rate. Deferred administration of atropine for this patient as he was cognizant and not having any other more serious underlying symptoms. Deferred pacing for the same above reasons. At the time of admission he was bradycardic with a normal blood pressure and a normal level of mental status. - Vital Signs Vital signs: Temp Pulse Resp BP Pulse Ox 97.9 F 43 L 16 114/90 H 97 07/07/18 11:33 07/07/18 11:33 07/07/18 11:33 07/07/18 07:14 07/07/18 11:33 - Laboratory Result Diagrams: 07/05/18 17:27 07/07/18 04:34 Laboratory results interpreted by me: 07/05/18 07/05/18 17:27 18:00 RBC 4.17 L Hgb 12.8 L Seg Neutrophils % 83.0 H Lymphocytes % 11.4 L BUN 23 H Glucose 118 H ALT 17 L Discharge - Discharge Clinical Impression: Bradycardia Medication adverse effect Qualifiers: Encounter type: initial encounter Qualified Code(s): T50.905A - Adverse effect of unspecified drugs, medicaments and biological substances, initial encounter Chest pain Qualifiers: Chest pain type: unspecified Qualified Code(s): R07.9 - Chest pain, unspecified Condition: Stable Disposition: ADMITTED INPATIENT Admitting Provider: Hospitalist Unit Admitted: [facility]
[2018-07-05 18:35] LABS: ALANINE AMINOTRANSFERASE 17 U/L (21-72); ALBUMIN 4.7 g/dL (3.5-5.0); ALKALINE PHOSPHATASE 120 U/L (38-126); ANION GAP 12 (5-19); ASPARTATE AMINO TRANSFERASE 21 U/L (17-59); BILIRUBIN,DIRECT 0.4 mg/dL (0.0-0.4); BILIRUBIN,TOTAL 0.8 mg/dL (0.2-1.3); BLOOD UREA NITROGEN 23 mg/dL (7-20); CALCIUM 9.7 mg/dL (8.4-10.2); CARBON DIOXIDE 27 mmol/L (22-30); CHLORIDE 101 mmol/L (98-107); CREATINE KINASE 74 U/L (55-170); GLUCOSE 118 mg/dL (75-110); SODIUM 139.9 mmol/L (137-145); TOTAL PROTEIN 7.9 g/dL (6.3-8.2)
[2018-07-05 18:46] LABS: CREATINE KINASE MB 0.95 ng/mL (<4.55)
[2018-07-05 18:53] LABS: TROPONIN I < 0.012 ng/mL
[2018-07-05] MEDS ORDERED: ALBUTEROL SULFATE 0.083% NEB 2.5 MG/3 ML AMPUL NEB ONE (20:29)
[2018-07-05] MEDS ORDERED: DEXTROSE 40% GEL 15 GM TUBE PO PRN ×2 (20:30)
[2018-07-05] MEDS ORDERED: NORMAL SALINE 1000 ML 1,000 ML IV SCH (20:30)
[2018-07-05] MEDS ORDERED: DEXTROSE 50%-WATER 25 GM/50 ML DISP.SYRIN IV PRN ×2 (20:30)
[2018-07-05] MEDS ORDERED: GLUCAGON,HUMAN RECOMB 1 MG INJ IM PRN (20:30)
[2018-07-05] MEDS ORDERED: CARBIDOPA/LEVODOPA 25-100 MG TABLET PO SCH (22:00)
[2018-07-05 22:21] LABS: CREATINE KINASE MB 0.93 ng/mL (<4.55)
[2018-07-05 22:24] LABS: TROPONIN I < 0.012 ng/mL
--- NOTE | 2018-07-05 22:32 | EKG REPORT ---
SEVERITY:- OTHERWISE NORMAL ECG - SINUS BRADYCARDIA : Confirmed by: Ivania Arauz MD 05-Jul-2018 22:32:12
[2018-07-06] MEDS ORDERED: NORMAL SALINE 1000 ML 1,000 ML IV SCH (00:15)
[2018-07-06] MEDS: NORMAL SALINE 1000 ML 1,000 ML IV PRN ×3 (00:32→09:50)
[2018-07-06] MEDS: ALBUTEROL SULFATE 0.083% NEB 2.5 MG/3 ML AMPUL NEB SCH ×4 (02:21→19:48)
[2018-07-06 04:05] LABS: CREATINE KINASE MB 0.65 ng/mL (<4.55)
[2018-07-06 04:06] LABS: TROPONIN I < 0.012 ng/mL
--- NOTE | 2018-07-06 06:05 | PDOC H&P ---
History of Present Illness Admission Date/PCP: 07/05/18 20:35 GUNNAR SALAS MD Patient complains of: Chest pain History of Present Illness: BAYLEE ROLLINS is a 72 year old male with a past medical history of coronary artery disease, diabetes, CVA with left-sided hemiparesis, obstructive sleep apnea, depression and Parkinson's with dementia. Patient presents with an episode of chest pain with vomiting which is otherwise difficult to detail given the patient is a poor historian. He presents to the emergency room and is found to have bradycardia in the 40s he was recently started on Aricept. Workup is otherwise unremarkable, he is pain-free and referred to the hospitalist for admission. Past Medical History Cardiac Medical History: Reports: Congestive Heart Failure, Coronary Artery Disease, Hyperlipidema, Hypertension Pulmonary Medical History: Reports: Pneumonia, Sleep Apnea - CPAP machine at home. Endocrine Medical History: Reports: Diabetes Mellitus Type 2 Denies: Hypothyroidism Malignancy Medical History: Denies: Breast Cancer, Cervical Cancer, Ovarian Cancer Musculoskeltal Medical History: Reports: Arthritis Psychiatric Medical History: Reports: Depression, Post Traumatic Stress Disorder Hematology: Reports: Anemia Denies: Hemophilia, Sickle Cell Disease Past Surgical History Past Surgical History: Reports: Cardiac Catheterization, Coronary Artery Bypass Graft - 3 VESSEL 08-23-12, Orthopedic Surgery - Right knee replacement, Left shoulder surgery Social History Information Source: Patient, [facility] Records Lives with: Spouse/Significant other Smoking Status: Never Smoker Frequency of Alcohol Use: None Hx Recreational Drug Use: No Drugs: None Hx Prescription Drug Abuse: No - Advance Directive Resuscitation Status: Full Code Family History Family History: CAD, DM, Hypertension, Malignancy Parental Family History Reviewed: Yes Children Family History Reviewed: Yes Sibling(s) Family History Reviewed.: Yes Medication/Allergy Home Medications: Aspirin [Aspirin EC] 81 mg PO DAILY 07/05/18 Brexpiprazole [Rexulti] 1 mg PO DAILY 07/05/18 Bupropion HCl [Wellbutrin Xl 150 mg 24hr Tablet] 150 mg PO DAILY 07/05/18 Carbidopa/Levodopa [Sinemet 25-100 mg Tablet] 2 tab PO QID 07/05/18 Clopidogrel Bisulfate [Plavix 75 mg Tablet] 75 mg PO DAILY 07/05/18 Donepezil HCl [Aricept 5 mg Tablet] 5 mg PO DAILY 07/05/18 Ferrous Sulfate [Feosol 325 mg Tablet] 325 mg PO DAILY 07/05/18 Fluoxetine HCl [Prozac] 80 mg PO QHS 07/05/18 Gabapentin [Neurontin 300 mg Capsule] 300 mg PO BID 07/05/18 Lisinopril [Prinivil 5 mg Tablet] 5 mg PO DAILY 07/05/18 Memantine HCl [Namenda Xr] 28 mg PO DAILY 07/05/18 Metoprolol Tartrate [Lopressor 25 mg Tablet] 12.5 mg PO Q12 07/05/18 Mirabegron [Myrbetriq] 25 mg PO DAILY 07/05/18 Nitroglycerin [Nitrostat 0.4 mg (1/150 Gr) Tabs 25/Bottle] 0.4 mg SL Q5MP PRN Oxcarbazepine [Trileptal] 300 mg PO BID 07/05/18 Sitagliptin Phosphate [Januvia 50 mg Tablet] 50 mg PO DAILY 07/05/18 Tamsulosin HCl [Flomax 0.4 mg Cap.sr] 0.4 mg PO QHS 07/05/18 Allergies/Adverse Reactions: No Known Allergies Allergy (Verified 09/05/16 14:34) Review of Systems ROS unobtainable: Due to mental status Physical Exam Vital Signs: Temp Pulse Resp BP Pulse Ox 98.4 F 41 L 20 110/56 L 99 07/06/18 03:37 07/06/18 03:37 07/06/18 03:37 07/06/18 03:37 07/06/18 03:37 Intake & Output 07/04/18 07/05/18 07/06/18 11:59 11:59 11:59 Intake Total 907 Balance 907 General appearance: PRESENT: no acute distress, cooperative. ABSENT: disheveled , hard of hearing Head exam: PRESENT: atraumatic, normocephalic Eye exam: PRESENT: conjunctiva pink, EOMI, PERRLA. ABSENT: scleral icterus Ear exam: PRESENT: normal external ear exam Mouth exam: PRESENT: moist, tongue midline Neck exam: ABSENT: carotid bruit, JVD, lymphadenopathy, thyromegaly Respiratory exam: PRESENT: clear to auscultation norm. ABSENT: rales, rhonchi, wheezes Cardiovascular exam: PRESENT: bradycardia. ABSENT: clicks, diastolic murmur, gallop, systolic murmur Pulses: PRESENT: normal dorsalis pedis pul Vascular exam: PRESENT: normal capillary refill GI/Abdominal exam: PRESENT: normal bowel sounds, soft. ABSENT: distended, guarding, mass, organolmegaly, rebound, tenderness Rectal exam: PRESENT: deferred Extremities exam: PRESENT: full ROM. ABSENT: calf tenderness, clubbing, pedal edema Neurological exam: PRESENT: alert, awake, oriented to person, oriented to place , oriented to situation, CN II-XII grossly intact. ABSENT: motor sensory deficit Psychiatric exam: PRESENT: appropriate affect, normal mood. ABSENT: homicidal ideation, suicidal ideation Skin exam: PRESENT: dry, intact, warm. ABSENT: cyanosis, rash Results Laboratory Results: 07/05/18 07/06/18 07/06/18 21:35 03:35 03:35 Creatine Kinase 57 CK-MB (CK-2) 0.93 0.65 Troponin I < 0.012 < 0.012 Impressions: Chest X-Ray 07/05/18 17:29 IMPRESSION: Minimal left basilar subsegmental atelectasis. No consolidation or pleural effusion. Assessment & Plan - Diagnosis (1) Bradycardia Is this a current diagnosis for this admission?: Yes Plan: Likely secondary to initiation of Aricept in combination of beta-linda. Both held, atropine as needed reevaluate in a.m. EKG. (2) Chest pain Is this a current diagnosis for this admission?: Yes Plan: Likely secondary to #1, follow-up serial cardiac enzymes, otherwise aggressive medical management for coronary artery disease (3) Medication adverse effect Qualifiers: Encounter type: initial encounter Qualified Code(s): T50.905A - Adverse effect of unspecified drugs, medicaments and biological substances, initial encounter Is this a current diagnosis for this admission?: Yes Plan: Aricept added to allergy list. - Time Time Spent: 30 to 50 Minutes - Inpatient Certification Medical Necessity: Need Close Monitoring Due to Risk of Patient Decompensation
--- NOTE | 2018-07-06 09:23 | EKG REPORT ---
SEVERITY:- ABNORMAL ECG - ATRIAL FIBRILLATION, V-RATE 47-57 VENTRICULAR PREMATURE COMPLEX BORDERLINE T ABNORMALITIES, INFERIOR LEADS : Confirmed by: Ivania Arauz MD 06-Jul-2018 09:22:35
[2018-07-06] MEDS: CLOPIDOGREL BISULFATE 75 MG TABLET PO SCH (09:31)
[2018-07-06] MEDS ORDERED: POLYETHYLENE GLYCOL 3350 POWDER 17 GM/1 PACKET PO SCH (10:00)
[2018-07-06 11:28] LABS: CREATINE KINASE MB 0.56 ng/mL (<4.55)
[2018-07-06 11:31] LABS: TROPONIN I < 0.012 ng/mL
--- NOTE | 2018-07-06 14:50 | PDOC PROGRESS REPORT ---
Subjective Progress Note for:: 07/06/18 Subjective:: BAYLEE ROLLINS is a 72 year old male with a past medical history of coronary artery disease, diabetes, CVA with left-sided hemiparesis, obstructive sleep apnea, depression and Parkinson's with dementia. Patient presents with an episode of chest pain with vomiting which is otherwise difficult to detail given the patient is a poor historian. He presents to the emergency room and is found to have bradycardia in the 40s he was recently started on Aricept. Discussed with and patient who is in the room patient was on Aricept a few years ago had a similar reaction. Heart rate currently in the upper 40s lower 50s and he is asymptomatic. Cardiac enzymes negative metoprolol and Aricept on hold. TSH 2.11 Reason For Visit: BRADYCARDIA, DEMENTIA DIABETES Physical Exam Vital Signs: Temp Pulse Resp BP Pulse Ox 98.9 F 43 L 16 122/45 L 96 07/06/18 11:23 07/06/18 14:00 07/06/18 13:58 07/06/18 11:23 07/06/18 13:58 Intake & Output 07/05/18 07/06/18 07/07/18 06:59 06:59 06:59 Intake Total 907 953 Balance 907 953 Weight 89.2 kg General appearance: PRESENT: no acute distress, well-developed, well-nourished Neck exam: ABSENT: carotid bruit, JVD, lymphadenopathy, thyromegaly Respiratory exam: PRESENT: clear to auscultation norm. ABSENT: rales, rhonchi, wheezes Cardiovascular exam: PRESENT: RRR, systolic murmur. ABSENT: diastolic murmur, rubs GI/Abdominal exam: PRESENT: normal bowel sounds, soft. ABSENT: distended, guarding, mass, organolmegaly, rebound, tenderness Neurological exam: PRESENT: alert, awake, oriented to person, oriented to place , oriented to situation, CN II-XII grossly intact, other - Tremor. ABSENT: motor sensory deficit Skin exam: PRESENT: dry, intact, warm. ABSENT: cyanosis, rash Results Laboratory Results: 07/06/18 10:05 TSH 2.11 07/05/18 07/06/18 07/06/18 21:35 03:35 03:35 Creatine Kinase 57 CK-MB (CK-2) 0.93 0.65 Troponin I < 0.012 < 0.012 07/06/18 10:05 Creatine Kinase CK-MB (CK-2) 0.56 Troponin I < 0.012 Impressions: Chest X-Ray 07/05/18 17:29 IMPRESSION: Minimal left basilar subsegmental atelectasis. No consolidation or pleural effusion. Assessment & Plan - Diagnosis (1) Bradycardia Is this a current diagnosis for this admission?: Yes Plan: Remains with bradycardia in the upper 40s lower 50s. Will have PT assess patient will likely need monitor on discharge to see if he has any pauses or profound bradycardia. Continue telemetry (2) Chest pain Is this a current diagnosis for this admission?: Yes Plan: No further chest pain with resolution of bradycardia. Patient's troponins negative. (3) Medication adverse effect Qualifiers: Encounter type: initial encounter Qualified Code(s): T50.905A - Adverse effect of unspecified drugs, medicaments and biological substances, initial encounter Is this a current diagnosis for this admission?: Yes (4) CAD (coronary artery disease) Qualifiers: Coronary Disease-Associated Artery/Lesion type: unspecified vessel or lesion type [place] vs. transplanted heart: [place] heart Associated angina: with unspecified angina Qualified Code(s): I25.119 - Atherosclerotic heart disease of [place] coronary artery with unspecified angina pectoris Is this a current diagnosis for this admission?: Yes Plan: Negative troponins no anginal complaints. (5) Diabetes Qualifiers: Diabetes mellitus type: type 2 Diabetes mellitus correction insulin use: without correction use Diabetes mellitus complication status: with kidney complications Diabetes mellitus complication detail: with chronic kidney disease Chronic kidney disease stage: stage 2 (mild) Qualified Code(s): E11.22 - Type 2 diabetes mellitus with diabetic chronic kidney disease; N18.2 - Chronic kidney disease, stage 2 (mild); N18.2 - Chronic kidney disease, stage 2 (mild) Is this a current diagnosis for this admission?: Yes Plan: Sliding scale continue outpatient medications. (6) Parkinson disease Is this a current diagnosis for this admission?: Yes Plan: Patient has a treating neurologist no further workup planned - Time Time Spent with patient: 25-34 minutes Anticipated discharge: Home Within: within 48 hours
[2018-07-06] MEDS ORDERED: BUPROPION HCL 75 MG TABLET PO SCH (15:30)
[2018-07-06] MEDS ORDERED: (PENDING PHARMACY ID) (Oxcarbazepine [Trileptal] 300 MG) PO SCH (18:00)
[2018-07-06] MEDS: GABAPENTIN 300 MG CAPSULE PO SCH (18:09)
[2018-07-06] MEDS: CARBIDOPA/LEVODOPA 25-100 MG TABLET PO SCH ×2 (18:09→21:59)
[2018-07-06] MEDS: BUPROPION HCL 75 MG TABLET PO SCH (21:59)
[2018-07-06] MEDS: OXCARBAZEPINE 150 MG TABLET PO SCH (21:59)
[2018-07-06] MEDS ORDERED: TAMSULOSIN HCL 0.4 MG CAP.SR.24H PO SCH (22:00)
[2018-07-06] MEDS ORDERED: FLUOXETINE HCL 20 MG CAPSULE PO SCH (22:00)
[2018-07-07] MEDS: ALBUTEROL SULFATE 0.083% NEB 2.5 MG/3 ML AMPUL NEB SCH ×2 (02:04→08:08)
[2018-07-07 05:35] LABS: ANION GAP 8 (5-19); BLOOD UREA NITROGEN 15 mg/dL (7-20); CALCIUM 9.4 mg/dL (8.4-10.2); CARBON DIOXIDE 28 mmol/L (22-30); CHLORIDE 105 mmol/L (98-107); GLUCOSE 91 mg/dL (75-110); POTASSIUM 4.6 mmol/L (3.6-5.0)
[2018-07-07 07:51] VITALS: BP 114/90
[2018-07-07] MEDS ORDERED: LISINOPRIL 5 MG TABLET PO SCH (10:00)
[2018-07-07] MEDS ORDERED: ASPIRIN 81 MG TABLET, ENT COATED PO SCH (10:00)
[2018-07-07] MEDS ORDERED: (PENDING PHARMACY ID) (Memantine Hcl [Namenda Xr] 28 MG) PO SCH (10:00)
[2018-07-07] MEDS ORDERED: (PENDING PHARMACY ID) (Bupropion Hcl [Wellbutrin Xl 150 Mg 24hr Tablet] 150 MG) PO SCH (10:00)
[2018-07-07] MEDS ORDERED: FERROUS SULFATE 325 MG TABLET PO SCH (10:00)
[2018-07-07] MEDS ORDERED: SITAGLIPTIN PHOSPHATE 50 MG TABLET PO SCH (10:00)
[2018-07-07] MEDS ORDERED: CLOPIDOGREL BISULFATE 75 MG TABLET PO SCH (10:00)
[2018-07-07] MEDS ORDERED: (PENDING PHARMACY ID) (Mirabegron [Myrbetriq] 25 MG) PO SCH (10:00)
[2018-07-07] MEDS ORDERED: (PENDING PHARMACY ID) (Brexpiprazole [Rexulti] 1 MG) PO SCH (10:00)
[2018-07-07] MEDS: CLOPIDOGREL BISULFATE 75 MG TABLET PO SCH (10:32)
[2018-07-07] MEDS: GABAPENTIN 300 MG CAPSULE PO SCH (10:32)
[2018-07-07] MEDS: CARBIDOPA/LEVODOPA 25-100 MG TABLET PO SCH (10:33)
[2018-07-07] MEDS: OXCARBAZEPINE 150 MG TABLET PO SCH (10:33)
[2018-07-07] MEDS: BUPROPION HCL 75 MG TABLET PO SCH (10:33)
--- NOTE | 2018-07-07 14:25 | PDOC DISCHARGE SUMMARY ---
General - Admit/Disc Date/PCP Admission Date/Primary Care Provider: 07/05/18 20:35 GUNNAR SALAS MD Discharge Date: 07/07/18 - Discharge Diagnosis (1) Bradycardia Is this a current diagnosis for this admission?: Yes (2) Chest pain Is this a current diagnosis for this admission?: Yes (3) Medication adverse effect Is this a current diagnosis for this admission?: Yes (4) CAD (coronary artery disease) Is this a current diagnosis for this admission?: Yes (5) Diabetes Is this a current diagnosis for this admission?: Yes (6) Parkinson disease Is this a current diagnosis for this admission?: Yes - Additional Information Resuscitation Status: Full Code Discharge Diet: Diabetic Discharge Activity: Activity As Tolerated Home Medications: Aspirin [Aspirin EC] 81 mg PO DAILY 07/05/18 Brexpiprazole [Rexulti] 1 mg PO DAILY 07/05/18 Bupropion HCl [Wellbutrin Xl 150 mg 24hr Tablet] 150 mg PO DAILY 07/05/18 Carbidopa/Levodopa [Sinemet 25-100 mg Tablet] 2 tab PO QID 07/05/18 Clopidogrel Bisulfate [Plavix 75 mg Tablet] 75 mg PO DAILY 07/05/18 Ferrous Sulfate [Feosol 325 mg Tablet] 325 mg PO DAILY 07/05/18 Fluoxetine HCl [Prozac] 80 mg PO QHS 07/05/18 Gabapentin [Neurontin 300 mg Capsule] 300 mg PO BID 07/05/18 Lisinopril [Prinivil 5 mg Tablet] 5 mg PO DAILY 07/05/18 Memantine HCl [Namenda Xr] 28 mg PO DAILY 07/05/18 Mirabegron [Myrbetriq] 25 mg PO DAILY 07/05/18 Nitroglycerin [Nitrostat 0.4 mg (1/150 Gr) Tabs 25/Bottle] 0.4 mg SL Q5MP PRN Oxcarbazepine [Trileptal] 300 mg PO BID 07/05/18 Sitagliptin Phosphate [Januvia 50 mg Tablet] 50 mg PO DAILY 07/05/18 Tamsulosin HCl [Flomax 0.4 mg Cap.sr] 0.4 mg PO QHS 07/05/18 History of Present Illness History of Present Illness: BAYLEE ROLLINS is a 72 year old male with a past medical history of coronary artery disease, diabetes, CVA with left-sided hemiparesis, obstructive sleep apnea, depression and Parkinson's with dementia. Patient presents with an episode of chest pain with vomiting which is otherwise difficult to detail given the patient is a poor historian. He presents to the emergency room and is found to have bradycardia in the 40s he was recently started on Aricept. Hospital Course Hospital Course: Patient was admitted to telemetry bed. Both his beta-linda and his Aricept were discontinued. Discussion with the she remembers he was tried on Aricept a few years ago and had a similar response. Monitoring the patient's heart rate on telemetry he had a low of 37 initially. After the 2 drugs were withheld his heart rate was in the upper 40s and lower 50s dipping into the lower 40s at night when patient was sleeping. All these bradycardias that were recorded were asymptomatic. He symptomatically felt better on the day of discharge and back to his baseline. He has a follow-up appointment with his treating manager acquisition later this week and it was recommended to him that he remain off those 2 medications and follow-up with his manager acquisition. Physical Exam Vital Signs: Temp Pulse Resp BP Pulse Ox 97.9 F 43 L 16 114/90 H 97 07/07/18 11:33 07/07/18 11:33 07/07/18 11:33 07/07/18 07:14 07/07/18 11:33 Intake & Output 07/06/18 07/07/18 07/08/18 06:59 06:59 06:59 Intake Total 907 3063 355 Output Total 2325 Balance 907 738 355 Weight 89.2 kg 90.5 kg General appearance: PRESENT: no acute distress, well-developed, well-nourished Neck exam: ABSENT: carotid bruit, JVD, lymphadenopathy, thyromegaly Respiratory exam: PRESENT: clear to auscultation norm. ABSENT: rales, rhonchi, wheezes Cardiovascular exam: PRESENT: RRR. ABSENT: diastolic murmur, rubs, systolic murmur GI/Abdominal exam: PRESENT: normal bowel sounds, soft. ABSENT: distended, guarding, mass, organolmegaly, rebound, tenderness Extremities exam: PRESENT: full ROM. ABSENT: calf tenderness, clubbing, pedal edema Neurological exam: PRESENT: alert, awake, oriented to person, oriented to place , oriented to time, oriented to situation, CN II-XII grossly intact, motor sensory deficit - Resting tremor consistent with Parkinson's Results Laboratory Results: 07/07/18 04:34 07/07/18 04:34 Sodium 141.0 Potassium 4.6 Chloride 105 Carbon Dioxide 28 Anion Gap 8 BUN 15 Creatinine 0.97 Est GFR ( Amer) > 60 Est GFR (Non-Af Amer) > 60 Glucose 91 Calcium 9.4 07/05/18 07/06/18 07/06/18 21:35 03:35 03:35 Creatine Kinase 57 CK-MB (CK-2) 0.93 0.65 Troponin I < 0.012 < 0.012 07/06/18 10:05 Creatine Kinase CK-MB (CK-2) 0.56 Troponin I < 0.012 Impressions: Chest X-Ray 07/05/18 17:29 IMPRESSION: Minimal left basilar subsegmental atelectasis. No consolidation or pleural effusion. Qualifiers - * PATIENT BEING DISCHARGED WITH ANY OF THE FOLLOWING DIAGNOSIS: No Plan Time Spent: Greater than 30 Minutes
== END 2018-07-07 12:19 | disposition home or self-care (01) ==
LOC: ER 16:54 → EH 20:35 → INTOOBSV 20:35 → 3S 23:04
PROVIDERS: ADMIT Internal Medicine; ATTEND Internal Medicine
DX: R00.1 Bradycardia, unspecified (principal); R07.9 Chest pain, unspecified; T50.905A Adverse effect of unspecified drugs, medicaments and biological substances, initial encounter; I25.119 Atherosclerotic heart disease of native coronary artery with unspecified angina pectoris; G20 Parkinson's disease; F02.80 Dementia in other diseases classified elsewhere, unspecified severity, without behavioral disturbance, psychotic disturbance, mood disturbance, and anxiety; E11.22 Type 2 diabetes mellitus with diabetic chronic kidney disease; I13.0 Hypertensive heart and chronic kidney disease with heart failure and stage 1 through stage 4 chronic kidney disease, or unspecified chronic kidney disease; N18.2 Chronic kidney disease, stage 2 (mild); R11.2 Nausea with vomiting, unspecified; F32.9 Major depressive disorder, single episode, unspecified; G47.33 Obstructive sleep apnea (adult) (pediatric); I69.354 Hemiplegia and hemiparesis following cerebral infarction affecting left non-dominant side; Z79.899 Other long term (current) drug therapy; Z79.82 Long term (current) use of aspirin; Z79.02 Long term (current) use of antithrombotics/antiplatelets; Z95.1 Presence of aortocoronary bypass graft; Z96.651 Presence of right artificial knee joint; Z82.49 Family history of ischemic heart disease and other diseases of the circulatory system
CPT/HCPCS: 93005 ×2; 99285; 36415 ×3; 82553 ×2; 82962 ×2; 82550 ×2; 83735; 84443; 85025; 80048; 80053; 84484 ×2; 71045; 93010 ×2; 94660 ×2; 94640 ×3; 97163; A9270 ×19; J3490 ×3; J7030; G8978; G8979

== ENCOUNTER 2019-02-07 12:05 | Emergency (ER) | payer MEDICARE, OTHER ==
--- NOTE | 2019-02-07 12:27 | ER Document Report ---
ED Medical Screen (RME) - General Chief Complaint: Shortness Of Breath Stated Complaint: SHORTNESS OF BREATH Time Seen by Provider: 02/07/19 12:19 Primary Care Provider: GUNNAR SALAS MD [Primary Care Provider] - Follow up as needed Mode of Arrival: Wheelchair Information source: Patient Notes: Patient is a 73-year-old male presented to the emergency department with multiple complaints today. Primarily he is complaining of shortness of breath that started yesterday. He is also had a fever. He denies any cough. He also reports he has not had any urine output since yesterday. He states that it feels like his bladder is about to explode. He states he has tried several times to use the bathroom with no success. He does state that he sees a urologist. He reports history of pneumonia and CHF. He states last time this happened he was placed on Flomax. Exam: Lung sounds clear and equal bilaterally. I have greeted and performed a rapid initial assessment of this patient. A comprehensive ED assessment and evaluation of the patient, analysis of test results and completion of the medical decision making process will be conducted by additional ED providers. Dictation of this chart was performed using voice recognition software; therefore, there may be some unintended grammatical errors. TRAVEL OUTSIDE OF THE [place] IN LAST 30 DAYS: No - Related Data Allergies/Adverse Reactions: donepezil [From Aricept] Adverse Reaction (Verified 02/07/19 12:06) Bradycardia Past Medical History - Past Medical History Cardiac Medical History: Reports: Hx Congestive Heart Failure, Hx Coronary Artery Disease, Hx Hypercholesterolemia, Hx Hypertension Pulmonary Medical History: Reports: Hx Pneumonia, Hx Sleep Apnea - CPAP machine at home. Neurological Medical History: Reports: Hx Cerebrovascular Accident - RESIDUAL LEFT SIDED WEAKNESS Endocrine Medical History: Reports: Hx Diabetes Mellitus Type 2. Denies: Hx Hypothyroidism Renal/ Medical History: Denies: Hx Peritoneal Dialysis GI Medical History: Denies: Hx Pancreatitis Musculoskeltal Medical History: Reports Hx Arthritis, Denies Hx Systemic Lupus Erythematosus Psychiatric Medical History: Reports: Hx Anxiety, Hx Depression, Hx Post Traumatic Stress Disorder Past Surgical History: Reports: Hx Cardiac Catheterization, Hx Cardiac Surgery - TRIPLE BIPASS 2011, Hx Coronary Artery Bypass Graft - 3 VESSEL 08-23-12, Hx Open Heart Surgery, Hx Orthopedic Surgery - Right knee replacement, Left shoulder surgery - Immunizations Hx Diphtheria, Pertussis, Tetanus Vaccination: No History of Influenza Vaccine for 06/2017 - 11/2017 Season: Yes Influenza Administration Date for 06/2017 - 11/2017 Season: 06/25/17 Physical Exam - Vital signs Vitals: Temp Pulse Resp BP Pulse Ox 100.2 F 71 26 H 131/54 H 97 02/07/19 12:11 02/07/19 12:11 02/07/19 12:11 02/07/19 12:11 02/07/19 12:11 Course - Vital Signs Vital signs: Temp Pulse Resp BP Pulse Ox 100.2 F 71 26 H 131/54 H 97 02/07/19 12:11 02/07/19 12:11 02/07/19 12:11 02/07/19 12:11 02/07/19 12:11 Doctor's Discharge - Discharge Referrals: GUNNAR SALAS MD [Primary Care Provider] - Follow up as needed
[2019-02-07 12:58] LABS: HEMATOCRIT 37.9 % (37.9-51.0); HEMOGLOBIN 12.7 g/dL (13.5-17.0); MEAN CORPUSCULAR HEMOGLOBIN 30.5 pg (27.0-33.4); MEAN CORPUSCULAR HGB CONC 33.4 g/dL (32.0-36.0); MEAN CORPUSCULAR VOLUME 91 fl (80-97); PLATELET COUNT 220 10^3/uL (150-450); RED BLOOD COUNT 4.16 10^6/uL (4.35-5.55); RED CELL DISTRIBUTION WIDTH 13.7 % (11.5-14.0); WHITE BLOOD COUNT 17.5 10^3/uL (4.0-10.5)
--- NOTE | 2019-02-07 13:08 | RADIOLOGY REPORT (SQ) ---
EXAM DESCRIPTION: CHEST SINGLE VIEW COMPLETED DATE/TIME: 02/07/2019 1:00 pm REASON FOR STUDY: shortness of breath, fever COMPARISON: 09/06/2016 EXAM PARAMETERS: NUMBER OF VIEWS: One view. TECHNIQUE: Single frontal radiographic view of the chest acquired. RADIATION DOSE: NA LIMITATIONS: None. FINDINGS: LUNGS AND PLEURA: No opacities, masses or pneumothorax. No pleural effusion. MEDIASTINUM AND HILAR STRUCTURES: No masses. Contour normal. HEART AND VASCULAR STRUCTURES: Heart normal in size. Normal vasculature. BONES: No acute findings. HARDWARE: CABG. OTHER: No other significant finding. IMPRESSION: NO ACUTE RADIOGRAPHIC FINDING IN THE CHEST. TECHNICAL DOCUMENTATION: JOB ID: [id number] [employer]- All Rights Reserved Reading location - IP/workstation name: [email or web address]
[2019-02-07 13:13] LABS: ALANINE AMINOTRANSFERASE 23 U/L (21-72); ALBUMIN 4.4 g/dL (3.5-5.0); ALKALINE PHOSPHATASE 123 U/L (38-126); ANION GAP 12 (5-19); ASPARTATE AMINO TRANSFERASE 21 U/L (17-59); BILIRUBIN,DIRECT 0.4 mg/dL (0.0-0.4); BILIRUBIN,TOTAL 1.2 mg/dL (0.2-1.3); BLOOD UREA NITROGEN 18 mg/dL (7-20); CALCIUM 9.8 mg/dL (8.4-10.2); CARBON DIOXIDE 26 mmol/L (22-30); CHLORIDE 104 mmol/L (98-107); GLUCOSE 123 mg/dL (75-110); POTASSIUM 3.6 mmol/L (3.6-5.0); SODIUM 142.1 mmol/L (137-145); TOTAL PROTEIN 7.5 g/dL (6.3-8.2)
--- NOTE | 2019-02-07 13:15 | ER Document Report ---
ED General - General Chief Complaint: Shortness Of Breath Stated Complaint: SHORTNESS OF BREATH Time Seen by Provider: 02/07/19 12:19 Primary Care Provider: GUNNAR SALAS MD [Primary Care Provider] - Follow up as needed Mode of Arrival: Wheelchair Notes: 73-year-old male presented to the emergency department with multiple complaints today. Primarily he is complaining of shortness of breath that started yesterday. He is also had a fever. He denies any cough. He also reports he has not had any urine output since yesterday. He states that it feels like his bladder is about to explode. He states he has tried several times to use the bathroom with no success. He does state that he sees a urologist. He reports history of pneumonia and CHF. He states last time this happened he was placed on Flomax. TRAVEL OUTSIDE OF THE [place] IN LAST 30 DAYS: No - Related Data Allergies/Adverse Reactions: donepezil [From Aricept] Adverse Reaction (Verified 02/07/19 12:06) Bradycardia Past Medical History - General Information source: Patient - Social History Smoking Status: Never Smoker Frequency of alcohol use: None Drug Abuse: None Family History: CAD, DM, Hypertension, Malignancy Patient has suicidal ideation: No Patient has homicidal ideation: No - Past Medical History Cardiac Medical History: Reports: Hx Congestive Heart Failure, Hx Coronary Artery Disease, Hx Hypercholesterolemia, Hx Hypertension Pulmonary Medical History: Reports: Hx Pneumonia, Hx Sleep Apnea - CPAP machine at home. Neurological Medical History: Reports: Hx Cerebrovascular Accident - RESIDUAL LEFT SIDED WEAKNESS Endocrine Medical History: Reports: Hx Diabetes Mellitus Type 2. Denies: Hx Hy pothyroidism Renal/ Medical History: Denies: Hx Peritoneal Dialysis GI Medical History: Denies: Hx Pancreatitis Musculoskeletal Medical History: Reports Hx Arthritis, Denies Hx Systemic Lupus Erythematosus Psychiatric Medical History: Reports: Hx Anxiety, Hx Depression, Hx Post Traumatic Stress Disorder Past Surgical History: Reports: Hx Cardiac Catheterization, Hx Cardiac Surgery - TRIPLE BIPASS 2011, Hx Coronary Artery Bypass Graft - 3 VESSEL 08-23-12, Hx Open Heart Surgery, Hx Orthopedic Surgery - Right knee replacement, Left shoulder surgery - Immunizations Hx Diphtheria, Pertussis, Tetanus Vaccination: No Hx Pneumococcal Vaccination: 09/25/14 Review of Systems - Review of Systems Constitutional: denies: Chills, Fever Respiratory: Short of breath. denies: Cough, Hemoptysis, Wheezing Genitourinary: Retention Neurological/Psychological: denies: Headaches -: Yes All other systems reviewed and negative Physical Exam - Vital signs Vitals: Temp Pulse Resp BP Pulse Ox 100.2 F 71 26 H 131/54 H 97 02/07/19 12:11 02/07/19 12:11 02/07/19 12:11 02/07/19 12:11 02/07/19 12:11 - Notes Notes: GENERAL_APPEARANCE: well_nourished, alert, cooperative, appears uncomfortable VITALS: reviewed, see vital signs table. HEAD: no_swelling\tenderness on the head. EYES: PERRL, EOMI, conjunctiva_clear. NOSE: no_nasal_discharge. MOUTH: (-)decreased moisture. THROAT: no_tonsilar_inflammation, no_airway_obstruction. no_lymphadenopathy NECK: supple, no_neck_tenderness, (-)thyromegaly. BACK: no_back_tenderness. CHEST_WALL: no_chest_tenderness. LUNGS: no_wheezing, no_rales, no_rhonchi, (-)accessory muscle use, good air exchange bilateral. HEART: normal_rate, normal_rhythm, normal_S1, normal_S2, (-)S3, (-)S4, no_murmur, no_rub. ABDOMEN: normal_BS, soft, suprapubic_abd_tenderness, (-)guarding, (-)rebound, no_organomegaly, dome of the bladder is palpable just below the umbilicus EXTREMITIES: good pulses in all_extremities, no_swelling\tenderness in the extremities, no_edema. SKIN: warm, dry, good_color, no_rash. MENTAL_STATUS: speech_clear, oriented_X_3, normal_affect, responds_appropriately to questions. Very hard of hearing Course - Re-evaluation Re-evalutation: 02/07/19 13:14 73-year-old male comes in with some difficulty breathing. Patient also states he cannot urinate the dome of his bladder is palpable at the umbilicus will place a Gonzalez catheter. We will do a dyspnea work-up. Patient denies any chest pain 02/07/19 15:44 The patient feels much better after the Gonzalez catheters placed. Had a large amount of urine drained. The patient does have an elevated BNP he is on only 40 mg of Lasix a day I will double that for the next 3 days. I do not see him being on any potassium I will double check his renal function and add potassium if needed. He does have some mild congestive failure but I think he should do well now that he has a Gonzalez and can be diuresed at home. Plan is to leave the Gonzalez in and follow-up with his urologist we will add Flomax to the patient's regiment. 02/07/19 15:53 The patient does have a urinary tract infection. Likely due to the retention. Patient was given a dose of Rocephin here and will place on Ceftin for home urine is cultured. This explains the patient's leukocytosis and low-grade temp. He is feeling much better. I think with the antibiotics the Gonzalez catheter and follow-up with Flomax he should do well. - Vital Signs Vital signs: Temp Pulse Resp BP Pulse Ox 100.2 F 71 21 H 118/51 L 98 02/07/19 12:11 02/07/19 12:11 02/07/19 14:02 02/07/19 13:11 02/07/19 14:02 - Laboratory Result Diagrams: 02/07/19 12:31 02/07/19 12:31 Laboratory results interpreted by me: 02/07/19 02/07/19 02/07/19 12:31 12:31 12:31 WBC 17.5 H RBC 4.16 L Hgb 12.7 L Seg Neuts % (Manual) 91 H Band Neutrophils % 1 L Lymphocytes % (Manual) 2 L Abs Neuts (Manual) 16.1 H Abs Lymphs (Manual) 0.4 L Creatinine 1.26 H Est GFR (Non-Af Amer) 56 L Glucose 123 H NT-Pro-B Natriuret Pep 3110 H Urine Blood Ur Leukocyte Esterase 02/07/19 13:14 WBC RBC Hgb Seg Neuts % (Manual) Band Neutrophils % Lymphocytes % (Manual) Abs Neuts (Manual) Abs Lymphs (Manual) Creatinine Est GFR (Non-Af Amer) Glucose NT-Pro-B Natriuret Pep Urine Blood MODERATE H Ur Leukocyte Esterase MODERATE H - Diagnostic Test Radiology reviewed: Reports reviewed Radiology results interpreted by me: 02/07/19 15:42 Chest X-Ray 02/07/19 12:25 IMPRESSION: NO ACUTE RADIOGRAPHIC FINDING IN THE CHEST. - EKG Interpretation by Me EKG shows normal: Sinus rhythm Rate: Bradycardia When compared to previous EKG there are: No significant change Additional EKG results interpreted by me: 02/07/19 15:44 Old EKG says junctional on the machine interpretation but I do see P waves this is likely sinus bradycardia which is unchanged compared to old EKG Discharge - Discharge Clinical Impression: Acute urinary retention, CHF (congestive heart failure) Condition: Good Disposition: HOME, SELF-CARE Instructions: Urinary Retention ([facility]), Urinary Tract Infection ([facility]), Congestive Heart Failure ([facility]) Additional Instructions: The Gonzalez catheter in for about a week. Follow-up with your doctor who can discontinue it or Dr. Cohn urologist. We will add Flomax to your regiment. Also you do have a mild urinary tract infection will add antibiotics to your regiment. We will have you follow-up with primary care or urology. Likely because of the inability to urinate you build up a little extra fluid and congestive failure. We will diurese you and double your Lasix the next 3 days. After 3 days you can go back to your regular dosing. Prescriptions: Cefuroxime Axetil [Ceftin 500 mg Tablet] 1 tab PO BID #20 tablet Furosemide [Lasix 40 mg Tablet] 40 mg PO BID #6 tablet Potassium Chloride [K-Tab ER] 10 meq PO DAILY #4 tablet.er Tamsulosin HCl [Flomax 0.4 mg Cap.sr] 0.4 mg PO DAILY #30 cap.sr.24h Referrals: GUNNAR SALAS MD [Primary Care Provider] - Follow up as needed
[2019-02-07 13:22] LABS: ABSOLUTE LYMPHOCYTES# (MANUAL) 0.4 10^3/uL (0.5-4.7); ABSOLUTE MONOCYTES # (MANUAL) 0.9 10^3/uL (0.1-1.4); ABSOLUTE NEUTROPHILS# (MANUAL) 16.1 10^3/uL (1.7-8.2); BAND NEUTROPHILS % (MANUAL) 1 % (3-5); BASOPHILS % (MANUAL) 0 % (0-2); EOSINOPHILS % (MANUAL) 1 % (0-6); LYMPHOCYTES % (MANUAL) 2 % (13-45); MONOCYTES % (MANUAL) 5 % (3-13); SEGMENTED NEUTROPHILS % (MAN) 91 % (42-78); TOTAL CELLS COUNTED 100
[2019-02-07 13:23] LABS: PLATELET COMMENT ADEQUATE; RBC MORPHOLOGY COMMENT NORMO-CYTIC/CHROMIC; TOXIC GRANULATION 1+
[2019-02-07 13:24] LABS: NT PRO BNP 3110 pg/mL (5-900)
[2019-02-07 13:27] LABS: TROPONIN I < 0.012 ng/mL
[2019-02-07 13:32] LABS: APPEARANCE,URINE CLOUDY; BILIRUBIN,URINE NEGATIVE (NEGATIVE); COLOR,URINE YELLOW; GLUCOSE, URINE NEGATIVE (NEGATIVE); KETONES,URINE NEGATIVE (NEGATIVE); LEUKOCYTE ESTERASE,URINE MODERATE (NEGATIVE); NITRITE,URINE NEGATIVE (NEGATIVE); PROTEIN,URINE NEGATIVE (NEGATIVE); URINE SPECIFIC GRAVITY 1.016; UROBILINOGEN,URINE NEGATIVE mg/dL (<2.0)
--- NOTE | 2019-02-07 14:07 | EKG REPORT ---
SEVERITY:- ABNORMAL ECG - ACCELERATED JUNCTIONAL ESCAPE RHYTHM NONSPECIFIC T ABNORMALITIES, LATERAL LEADS PROLONGED QT INTERVAL : Confirmed by: Isiah Mayers MD 07-Feb-2019 14:07:12
[2019-02-07] MEDS ORDERED: AMPICILLIN SOD/SULBACTAM 3 GM VIAL IV ONE (15:04)
[2019-02-07] MEDS ORDERED: CEFTRIAXONE 1 GM/D5W RTU 1 GM/50 ML RTUPB IV ONE (16:00)
[2019-02-07 17:10] VITALS: BP 134/62
== END 2019-02-07 17:10 | disposition home or self-care (01) ==
LOC: ER 12:05
DX: I11.0 Hypertensive heart disease with heart failure (principal); I50.9 Heart failure, unspecified; Z79.899 Other long term (current) drug therapy; R33.9 Retention of urine, unspecified; N39.0 Urinary tract infection, site not specified; R00.1 Bradycardia, unspecified; R06.02 Shortness of breath; R50.9 Fever, unspecified; I25.10 Atherosclerotic heart disease of native coronary artery without angina pectoris; E11.9 Type 2 diabetes mellitus without complications; Z95.1 Presence of aortocoronary bypass graft; Z87.01 Personal history of pneumonia (recurrent)
CPT/HCPCS: 93005; 99285; 51702; 96365; 36415; 87040; 87086; 85025; 87077; 87088; 80053; 81001; 84484; 87186; 83880; 71045; 93010; C1758 ×2; J0696

== ENCOUNTER 2019-02-13 13:24 | Emergency (ER) | payer MEDICARE, OTHER ==
--- NOTE | 2019-02-13 15:39 | ER Document Report ---
HPI - HPI Time Seen by Provider: 02/13/19 15:27 Pain Level: Denies Notes: Patient is a 73-year-old male who presents for evaluation as he missed his urology appointment after having a Herrmann placed here in the emergency department about 6 days ago. Patient states that he did have a urinary infection at that time and was treated with antibiotics. Patient states that they have not had any significant complications with his Herrmann. He missed his urology appointment by 45 minutes so they notified his family doctor who told him to come here for evaluation. Patient states that he is otherwise feeling well. He is eating and drinking without difficulty. They have not noticed any hematuria. He is having normal bowel movements. Patient does have an extensive medical history otherwise including Parkinson's, coronary artery bypass graft, hypertension, type 2 diabetes, hypercholesterolemia, chronic kidney disease. He is not on dialysis. Denies any headache, fever, neck pain, URI, sore throat, chest pain, palpitations, syncope, cough, shortness of breath, wheeze, dyspnea, abdominal pain, nausea/vomiting/diarrhea, hematuria, or rash. - ROS Systems Reviewed and Negative: Yes All other systems reviewed and negative Past Medical History - Social History Smoking Status: Never Smoker Family History: CAD, DM, Hypertension, Malignancy - Past Medical History Cardiac Medical History: Reports: Hx Congestive Heart Failure, Hx Coronary Artery Disease, Hx Hypercholesterolemia, Hx Hypertension Pulmonary Medical History: Reports: Hx Pneumonia, Hx Sleep Apnea - CPAP machine at home. Neurological Medical History: Reports: Hx Cerebrovascular Accident - RESIDUAL LEFT SIDED WEAKNESS Endocrine Medical History: Reports: Hx Diabetes Mellitus Type 2. Denies: Hx Hypothyroidism Renal/ Medical History: Denies: Hx Peritoneal Dialysis GI Medical History: Denies: Hx Pancreatitis Musculoskeletal Medical History: Reports Hx Arthritis, Denies Hx Systemic Lupus Erythematosus Psychiatric Medical History: Reports: Hx Anxiety, Hx Depression, Hx Post Traumatic Stress Disorder Past Surgical History: Reports: Hx Cardiac Catheterization, Hx Cardiac Surgery - TRIPLE BIPASS 2011, Hx Coronary Artery Bypass Graft - 3 VESSEL 08-23-12, Hx Open Heart Surgery, Hx Orthopedic Surgery - Right knee replacement, Left shoulder surgery - Immunizations Hx Diphtheria, Pertussis, Tetanus Vaccination: No Hx Pneumococcal Vaccination: 09/25/14 Vertical Provider Document - CONSTITUTIONAL Agree With Documented VS: Yes Notes: PHYSICAL EXAMINATION: GENERAL: Well-appearing, well-nourished and in no acute distress. LUNGS: Breath sounds clear to auscultation bilaterally and equal. No wheezes rales or rhonchi. HEART: Regular rate and rhythm without murmurs, rubs, gallops. ABDOMEN: Soft, nontender, nondistended abdomen. No guarding, no rebound. No masses appreciated. Normal bowel sounds present. No CVA tenderness bilaterally. Musculoskeletal: FROM to passive/active. Strength 5+/5. Extremities: No cyanosis, clubbing, or edema b/l. Peripheral pulses 2+. Capillary refill less than 3 seconds. NEUROLOGICAL: Normal speech, normal gait. PSYCH: Normal mood, normal affect. SKIN: Warm, Dry, normal turgor, no rashes or lesions noted. - INFECTION CONTROL TRAVEL OUTSIDE OF THE [place] IN LAST 30 DAYS: No Course - Re-evaluation Re-evalutation: 02/13/19 15:36 I did thoroughly review the options with patient and about removing the Herrmann catheter and having him wait here in the emergency department until he can urinate on his own successfully without any complications which could take 2 to 3 hours. I also offered them removal of current catheter and placement of a new one with leg bag and he can call the urology office again tomorrow to schedule an appointment for his urinary retention issues. Either way, labs will be checked. and patient would like to just have the Herrmann catheter replaced as he is tolerating it well without any complications and would like to be seen by urologist thereafter. CBC, CMP, urinalysis ordered. Vitals otherwise acceptable at this time. Patient had a urine culture from his last visit which show susceptibility to the antibiotic that he is currently on. 02/13/19 18:47 Patient is an afebrile, well-hydrated, 73-year-old male who presents for replacement of his Herrmann catheter and reevaluation. Vitals are acceptable without significant tachycardia, tachypnea, or hypoxia. PE is otherwise u nremarkable. CBC, CMP, urinalysis acceptable at this time and markedly improved from last visit. Catheter was replaced successfully without any complications. Patient states that he is feeling well and is ready to go home. No further work-up warranted. Low suspicion for any sepsis, meningitis, severe dehydration, respiratory compromise, or other systemic emergent condition at this time. Patient is aware that condition can change from initial presentation and he needs to monitor symptoms closely and seek medical attention with any acute changes. Recheck with urology as reviewed. Return to the ED with any other worsening/concerning symptoms. Patient and in agreement. - Vital Signs Vital signs: Temp Pulse Resp BP Pulse Ox 98 F 70 16 134/59 H 98 02/13/19 13:45 02/13/19 13:45 02/13/19 13:45 02/13/19 13:45 02/13/19 13:45 - Laboratory Result Diagrams: 02/13/19 16:22 02/13/19 16:22 Discharge - Discharge Clinical Impression: Encounter for Herrmann catheter replacement Condition: Stable Disposition: HOME, SELF-CARE Additional Instructions: Maintain fluid intake Proper hygenic technique Keep the skin clean Tylenol as needed Take home medications as directed Leave the herrmann in place until evaluation with Urology F/u with your PCM/urology in 3-5 days for a recheck Return to the ED with any worsening symptoms and/or development of fever, headache, chest pain, palpitations, syncope, shortness of breath, trouble breathing, abdominal pain, n/v/d, blood in stool/urine, loss of control of bowel/bladder, urinary retention, or other worsening symptoms that are concerning to you. Forms: Elevated Blood Pressure Referrals: [facility] [Provider Group] - Follow up in 3-5 days
[2019-02-13 16:55] LABS: ABSOLUTE EOSINOPHILS # (AUTO) 0.1 10^3/uL (0.0-0.6); ABSOLUTE LYMPHOCYTES (AUTO) 1.2 10^3/uL (0.5-4.7); ABSOLUTE MONOCYTES (AUTO) 0.7 10^3/uL (0.1-1.4); ABSOLUTE NEUT (AUTO) 4.4 10^3/uL (1.7-8.2); BASOPHILS % (AUTO) 0.4 % (0-2); HEMATOCRIT 36.9 % (37.9-51.0); HEMOGLOBIN 12.2 g/dL (13.5-17.0); LYMPHOCYTES % (AUTO) 18.3 % (13-45); MEAN CORPUSCULAR HEMOGLOBIN 29.9 pg (27.0-33.4); MEAN CORPUSCULAR HGB CONC 32.9 g/dL (32.0-36.0); MEAN CORPUSCULAR VOLUME 91 fl (80-97); MONOCYTES % (AUTO) 11.5 % (3-13); PLATELET COUNT 313 10^3/uL (150-450); RED BLOOD COUNT 4.07 10^6/uL (4.35-5.55); RED CELL DISTRIBUTION WIDTH 14.1 % (11.5-14.0); SEGMENTED NEUTROPHILS % (AUTO) 68.8 % (42-78); TOTAL CELLS COUNTED % (AUTO) 100 %; WHITE BLOOD COUNT 6.4 10^3/uL (4.0-10.5)
[2019-02-13] MEDS ORDERED: LIDOCAINE 2% URO-JET 5 ML KIT MM ONE (17:12)
[2019-02-13 17:18] LABS: ALANINE AMINOTRANSFERASE 39 U/L (21-72); ALBUMIN 3.9 g/dL (3.5-5.0); ALKALINE PHOSPHATASE 205 U/L (38-126); ANION GAP 13 (5-19); ASPARTATE AMINO TRANSFERASE 72 U/L (17-59); BILIRUBIN,DIRECT 0.4 mg/dL (0.0-0.4); BILIRUBIN,TOTAL 0.5 mg/dL (0.2-1.3); BLOOD UREA NITROGEN 20 mg/dL (7-20); CALCIUM 9.7 mg/dL (8.4-10.2); CARBON DIOXIDE 30 mmol/L (22-30); CHLORIDE 100 mmol/L (98-107); GLUCOSE 153 mg/dL (75-110); POTASSIUM 4.4 mmol/L (3.6-5.0); SODIUM 142.9 mmol/L (137-145); TOTAL PROTEIN 7.3 g/dL (6.3-8.2)
[2019-02-13 18:30] LABS: APPEARANCE,URINE CLEAR; BILIRUBIN,URINE NEGATIVE (NEGATIVE); COLOR,URINE YELLOW; GLUCOSE, URINE NEGATIVE (NEGATIVE); KETONES,URINE TRACE mg/dL (NEGATIVE); LEUKOCYTE ESTERASE,URINE SMALL (NEGATIVE); NITRITE,URINE NEGATIVE (NEGATIVE); PROTEIN,URINE 30 mg/dL (NEGATIVE); UROBILINOGEN,URINE NEGATIVE mg/dL (<2.0)
[2019-02-13 18:54] VITALS: BP 122/88
== END 2019-02-13 18:54 | disposition home or self-care (01) ==
LOC: ER 13:24
DX: Z46.6 Encounter for fitting and adjustment of urinary device (principal)
CPT/HCPCS: 99283; 51702; 36415; 87086; 85025; 80053; 81001; A9270; J3490

== ENCOUNTER 2019-07-11 11:52 | Day surgery (SDC) | payer MEDICARE, OTHER ==
[~2019-07-11 11:52] MED LIST: BESIFLOXACIN HCL 0.6% OPH SUSP 5 ML BOTTLE OS PRN; CHONDR SU A NA/HYALUR INTRAOC KIT (SURGICARE) ONE; CYCLOPENTOLATE 0.2%/PHENYLEPHRINE 1% OPH SOLN 2 ML OS PRN; DORZOLAMIDE HCL 2%/TIMOLOL MALEAT 0.5% OPH SOLN 10 ML OS PRN; EPINEPHRINE INJ/PF 1 MG/1 ML AMPULE ONE; KETOROLAC TROMETHAMINE 0.45% 4 DROP/0.4 ML DROPERETTE OS PRN; LIDOCAINE 1% INJ-PF (10 MG/ML) 30 ML SDV ONE; LIDOCAINE 3.5% OPH GEL/PF 1 ML/TUBE OS PRN; TROPICAMIDE 1% OPH SOLN 15 ML OS PRN
[2019-07-11] MEDS: BESIFLOXACIN HCL 0.6% OPH SUSP 5 ML BOTTLE OS PRN ×5 (12:45→13:51)
[2019-07-11] MEDS: CYCLOPENTOLATE 0.2%/PHENYLEPHRINE 1% OPH SOLN 2 ML OS PRN ×3 (12:45→13:05)
[2019-07-11] MEDS: TETRACAINE HCL 0.5% OPH SOLN 4 ML OS PRN ×3 (12:45→13:25)
[2019-07-11] MEDS ORDERED: FENTANYL CITRATE INJ/PF 100 MCG/2 ML AMPUL ONE (13:14)
[2019-07-11] MEDS ORDERED: MIDAZOLAM 2 MG/2 ML INJ ONE (13:14)
[2019-07-11] MEDS: DORZOLAMIDE HCL 2%/TIMOLOL MALEAT 0.5% OPH SOLN 10 ML OS PRN ×2 (13:51)
--- NOTE | 2019-07-28 17:59 | Operative Report ---
Operative Report-[facility] Operative Report: PREOPERATIVE DIAGNOSIS: Nuclear, cortical and posterior subcapsular cataract, left eye POSTOPERATIVE DIAGNOSIS: Nuclear, cortical and posterior subcapsular cataracts, left eye PROCEDURE: Phacoemulsification and posterior chamber intraocular lens implant, left eye PROCEDURE DATE: [July 11, 2019 ] SURGEON: Chris Hall MD Next [employer]ARD[employer]PL[employer] SALES REPRESENTATIVE: [Dr. Mcgraw] ANESTHESIA: Topical with IV sedation next COMPLICATIONS: None TISSUE TO PATHOLOGY: None ESTIMATED BLOOD LOSS: None INDICATION FOR SURGERY: [Mr. Faria is a 73 year old male ] Who presents to our clinic complaining of difficulty seeing, to read and drive due to blurry vision in both eyes. On examination, he was found to have best corrected visual acuity of [20/80] in the left eye. Ophthalmoscopy revealed a [+1] nuclear, [+3] corneal degeneration, [+1] posterior subcapsular cataract in the left eye with normal appearing cornea, vitreous, retina and optic nerve. I discussed the findings of the exam with the patient. We discussed the risks, benefits and alternatives of cataract extraction and intraocular lens implant in the left eye as a means of improving her vision. Risks that were discussed with the patient include infection, bleeding, retinal detachment and possible need for additional surgery. The patient understands that he may need to wear glasses after surgery. After discussion, the patient indicated his interest in having this procedure performed by signing an informed witness consent form. REPORT OF PROCEDURE: On the day of surgery, the patient was given a topical application to the left eye to consist of drop of Tetracaine 0.5%, tropicamide 1%, Cyclomidril, Besivance 0.6% and Acular 0.45%. The patient was then taken to the operating room in a supine position in a standard eye bed. Intravenous sedation was administered and he was prepped and draped in the standard fashion. A timeout was performed to confirm the surgical site. Attention was directed to the left eye where a paracentesis was created at the 5:30 position at the corneal limbus with a 15 degree blade. The anterior chamber was filled with 0.3 mL of 1% methylparaben free lidocaine and after 30 seconds the anterior chamber was filled with viscoelastic material. A 3 plane corneal incision was then made at the 3 o'clock position at the cornea limbus with a keratome. A continuous curvilinear capsulorrhexis was then made in the anterior capsule of the lens with a cystotome. The lens was hydrodissected using balanced saline solution. The lens nucleus was then removed by phacoemulsification using the stop and chop technique. CDE [7.55]. The remaining cortical material was then removed from the posterior capsular bag using irrigation and aspiration. The posterior capsule bag was filled with viscoelastic material and a lens implant was inserted into the posterior capsule bag. I have chosen for this case is a one piece acrylic lens from [employer] model [[id number]], serial number [[id number]], lens power [16.5]. The lens was removed from its package, inspected and found to be free of defects it was loaded into a [place] D joinery machinist. The joinery machinist was passed through the temporal wound and the lens was advanced into the posterior capsular bag. The lens implant was centered in the posterior capsular bag with the [place] spatula the viscoelastic material was removed from the eye using irrigation and aspiration. The wounds were closed by stromal hydration and they were tested with the Weck-Judi sponges and found to have no leaks. Intraocular pressure was assessed by manual palpitation found to be with in the physiologic range. The drape and speculum were removed. Drops of Durezol, Combigan and gatifloxacin were instilled in the left eye. The patient was then taken to the recovery room in good condition. The patient tolerated the procedure very well. The patient was given a prescription for gatifloxacin, Durezol and Ilervo to use every 2 hours while awake today. He will return my clinic tomorrow for follow-up evaluation.
== END 2019-07-11 14:41 | disposition home or self-care (01) ==
LOC: SC 11:52
PROVIDERS: ATTEND Ophthalmology
DX: H25.812 Combined forms of age-related cataract, left eye (principal); Z86.73 Personal history of transient ischemic attack (TIA), and cerebral infarction without residual deficits; I10 Essential (primary) hypertension; G47.33 Obstructive sleep apnea (adult) (pediatric); G20 Parkinson's disease
CPT/HCPCS: 66984; 82962; 00142; V2632; J2250; J3490 ×2; A9270; J0171; 142; J3010

== ENCOUNTER 2019-08-14 15:09 | Emergency (ER) | payer MEDICARE, OTHER ==
--- NOTE | 2019-08-14 15:17 | ER Document Report ---
ED Medical Screen (RME) - General Chief Complaint: S/S of Possible Stroke Stated Complaint: POSSIBLE STROKE Time Seen by Provider: 08/14/19 15:15 Primary Care Provider: RJ BROWN MD [Primary Care Provider] - Follow up as needed Notes: Patient is a 73-year-old male who presents to the emergency department with possible strokelike symptoms. Patient was at home and all of a sudden he became weak. According to his he had fallen to the floor. She went to go check up on him he was confused. Patient does have some left-sided weakness. Last known well time was at 1400. Exam: Left side weaker than the right. I have greeted and performed a rapid initial assessment of this patient. A comprehensive ED assessment and evaluation of the patient, analysis of test results and completion of medical decision making process will be conducted by an additional ED providers. TRAVEL OUTSIDE OF THE [place] IN LAST 30 DAYS: No - Related Data Allergies/Adverse Reactions: donepezil [From Aricept] Adverse Reaction (Verified 02/13/19 13:25) Bradycardia Past Medical History - Past Medical History Cardiac Medical History: Reports: Hx Congestive Heart Failure, Hx Coronary Artery Disease, Hx Hypercholesterolemia, Hx Hypertension Denies: Hx Heart Attack - TEST SHOW POSSIBLE Pulmonary Medical History: Reports: Hx Pneumonia, Hx Sleep Apnea - CPAP machine at home. Denies: Hx Asthma Neurological Medical History: Denies: Hx Cerebrovascular Accident - MAYBE, Hx Seizures, Hx Parkinson's Disease Endocrine Medical History: Reports: Hx Diabetes Mellitus Type 2. Denies: Hx Hypothyroidism Renal/ Medical History: Denies: Hx Peritoneal Dialysis GI Medical History: Denies: Hx Hepatitis, Hx Hiatal Hernia, Hx Pancreatitis, Hx Ulcer Musculoskeltal Medical History: Reports Hx Arthritis, Denies Hx Systemic Lupus Erythematosus Psychiatric Medical History: Reports: Hx Anxiety, Hx Depression, Hx Post Traumat ic Stress Disorder Infectious Medical History: Denies: Hx Hepatitis Past Surgical History: Reports: Hx Cardiac Catheterization, Hx Cardiac Surgery - TRIPLE BIPASS 2011, Hx Coronary Artery Bypass Graft - 3 VESSEL 08-23-12, Hx Open Heart Surgery - 2009,AFTER UNABLE TO DO STENTS, Hx Orthopedic Surgery - Right knee replacement, Left shoulder surgery. Denies: Hx Pacemaker - Immunizations Hx Diphtheria, Pertussis, Tetanus Vaccination: No Doctor's Discharge - Discharge Referrals: RJ BROWN MD [Primary Care Provider] - Follow up as needed
--- NOTE | 2019-08-14 15:29 | RADIOLOGY REPORT (SQ) ---
EXAM DESCRIPTION: CHEST SINGLE VIEW COMPLETED DATE/TIME: 08/14/2019 3:20 pm REASON FOR STUDY: bed 1 stroke alert COMPARISON: AP view of the chest from 02/07/2019. EXAM PARAMETERS: NUMBER OF VIEWS: One view. TECHNIQUE: Single frontal radiographic view of the chest acquired. RADIATION DOSE: NA LIMITATIONS: None. FINDINGS: LUNGS AND PLEURA: No consolidation, pleural effusion or pneumothorax. MEDIASTINUM AND HILAR STRUCTURES: No mediastinal or hilar contour abnormality. HEART AND VASCULAR STRUCTURES: The cardiac silhouette and pulmonary vasculature are within normal messer its given the low inspiratory lung volumes. BONES: No acute findings. HARDWARE: None in the chest. OTHER: No other finding. IMPRESSION: Low inspiratory lung volumes without a superimposed acute cardiopulmonary process. TECHNICAL DOCUMENTATION: JOB ID: [id number] [employer]- All Rights Reserved Reading location - IP/workstation name: [email or web address]
--- NOTE | 2019-08-14 15:44 | RADIOLOGY REPORT (SQ) ---
EXAM DESCRIPTION: CT HEAD WITHOUT COMPLETED DATE/TIME: 08/14/2019 3:29 pm REASON FOR STUDY: bed 1 stroke alert COMPARISON: None. TECHNIQUE: Axial images acquired through the brain without intravenous contrast. Images reviewed wi th bone, brain and subdural windows. Additional sagittal and coronal reconstructions were generated. Images stored on PACS. All CT scanners at this facility use dose modulation, iterative reconstruction, and/or weight based d osing when appropriate to reduce radiation dose to as low as reasonably achievable (ALARA). [facility]: Dose Right [facility]: CareDose [facility]: Dose Right [facility]: Teradose 4D [facility]: EngineLab RADIATION DOSE: CT Rad equipment meets quality standard of care and radiation dose reduction techniq ues were employed. CTDIvol: 53.2 mGy. DLP: 1044 mGy-cm. mGy. LIMITATIONS: None. FINDINGS: There is no acute intracranial hemorrhage, vascular territorial infarct, extra-axial colle ction, mass effect or midline shift. There is no effacement of the cerebral sulci or basal subarachn oid cisterns. The cabrera-white matter differentiation is preserved. The caliber of the ventricles is concordant with the degree of sulcation. The orbits and globes are intact. The paranasal sinuses and the mastoid air cells are clear. There is no fracture of the calvarium. IMPRESSION: No acute intracranial abnormality. EVIDENCE OF ACUTE STROKE: NO. COMMENT: Quality ID # [id number]: Final reports with documentation of one or more dose reduction techniques (e.g., Automated exposure control, adjustment of the mA and/or kV according to patient size, use of iterative reconstruction technique) TECHNICAL DOCUMENTATION: JOB ID: [id number] [employer]- All Rights Reserved Reading location - IP/workstation name: [email or web address]
[2019-08-14 15:51] LABS: ABSOLUTE LYMPHOCYTES (AUTO) 0.9 10^3/uL (0.5-4.7); ABSOLUTE MONOCYTES (AUTO) 1.1 10^3/uL (0.1-1.4); ABSOLUTE NEUT (AUTO) 11.2 10^3/uL (1.7-8.2); BASOPHILS % (AUTO) 0.2 % (0-2); EOSINOPHILS % (AUTO) 0.1 % (0-6); HEMATOCRIT 37.4 % (37.9-51.0); HEMOGLOBIN 12.6 g/dL (13.5-17.0); LYMPHOCYTES % (AUTO) 6.5 % (13-45); MEAN CORPUSCULAR HEMOGLOBIN 30.9 pg (27.0-33.4); MEAN CORPUSCULAR HGB CONC 33.5 g/dL (32.0-36.0); MEAN CORPUSCULAR VOLUME 92 fl (80-97); MONOCYTES % (AUTO) 8.1 % (3-13); PLATELET COUNT 250 10^3/uL (150-450); RED BLOOD COUNT 4.06 10^6/uL (4.35-5.55); RED CELL DISTRIBUTION WIDTH 13.7 % (11.5-14.0); SEGMENTED NEUTROPHILS % (AUTO) 85.1 % (42-78); TOTAL CELLS COUNTED % (AUTO) 100 %; WHITE BLOOD COUNT 13.1 10^3/uL (4.0-10.5)
[2019-08-14] MEDS ORDERED: NORMAL SALINE 500 ML IV ONE (15:52)
[2019-08-14 15:57] LABS: INTERNATIONAL RATION (INR) 1.24; PROTHROMBIN TIME 15.7 SEC (11.4-15.4)
[2019-08-14 15:58] LABS: PARTIAL THROMBOPLASTIN TIME 26.4 SEC (23.5-35.8)
[2019-08-14] MEDS ORDERED: ALTEPLASE INJ 100 MG VIAL ONE (15:58)
[2019-08-14] MEDS ORDERED: ALTEPLASE INJ 100 MG VIAL IV ONE (16:00)
[2019-08-14 16:09] LABS: ALBUMIN 4.4 g/dL (3.5-5.0); ALKALINE PHOSPHATASE 109 U/L (38-126); ANION GAP 16 (5-19); ASPARTATE AMINO TRANSFERASE 19 U/L (17-59); BILIRUBIN,DIRECT 0.1 mg/dL (0.0-0.4); BILIRUBIN,TOTAL 0.7 mg/dL (0.2-1.3); BLOOD UREA NITROGEN 33 mg/dL (7-20); CALCIUM 9.5 mg/dL (8.4-10.2); CARBON DIOXIDE 21 mmol/L (22-30); CHLORIDE 103 mmol/L (98-107); CREATINE KINASE 90 U/L (55-170); GLUCOSE 156 mg/dL (75-110); POTASSIUM 3.8 mmol/L (3.6-5.0); TOTAL PROTEIN 7.5 g/dL (6.3-8.2)
[2019-08-14 16:21] LABS: CREATINE KINASE MB 0.96 ng/mL (<4.55); TROPONIN I 0.029 ng/mL
[2019-08-14 16:33] VITALS: BP 111/68
--- NOTE | 2019-08-14 16:42 | ER Document Report ---
Entered by VEENA HALL SCRIBE 08/14/19 1527 Acting as scribe for:EMMY KRAUSE DO ED Neuro Symptoms/Deficit - General Chief Complaint: S/S of Possible Stroke Stated Complaint: POSSIBLE STROKE Time Seen by Provider: 08/14/19 15:15 Primary Care Provider: RJ BROWN MD [Primary Care Provider] - Follow up as needed Information source: Patient, Relative, [facility] Records Notes: This 73-year-old male patient on plavix presents to the emergency department today with complaints of left sided weakness with a last known well of 2:00pm this afternoon. Patient has had a prior CVA with residual left sided weakness but both the patient and his spouse at bedside agree that his weakness now is worse than baseline. states that when she left to knot picker cloth her grandchild from school at 2:00pm today the patient was seemingly normal. When she got home he was standing up at the kitchen counter, shaking, and seemed confused. He told her that he had fallen twice while she was gone. Patient states he has not missed any of his medications. Patient denies cough, chest pain, fevers, vomiting, or diarrhea. 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 Parkinson's Disease. TRAVEL OUTSIDE OF THE [place] IN LAST 30 DAYS: No - Related Data Allergies/Adverse Reactions: donepezil [From Aricept] Adverse Reaction (Verified 02/13/19 13:25) Bradycardia Past Medical History - General Information source: Patient, Relative, [facility] Records Cannot obtain history due to: Other - patient and are both poor historians - Social History Smoking Status: Former Smoker Cigarette use (# per day): No Chew tobacco use (# tins/day): No Frequency of alcohol use: None Drug Abuse: None Lives with: Spouse/Significant other Family History: CAD, DM, Hypertension, Malignancy - Past Medical History Cardiac Medical History: Reports: Hx Congestive Heart Failure, Hx Coronary Artery Disease, Hx Hypercholesterolemia, Hx Hypertension Pulmonary Medical History: Reports: Hx Pneumonia, Hx Sleep Apnea - CPAP machine at home. Neurological Medical History: Reports: Hx Cerebrovascular Accident - "maybe" Endocrine Medical History: Reports: Hx Diabetes Mellitus Type 2 Musculoskeletal Medical History: Reports Hx Arthritis Psychiatric Medical History: Reports: Hx Anxiety, Hx Depression, Hx Post Traumatic Stress Disorder Past Surgical History: Reports: Hx Cardiac Catheterization, Hx Cardiac Surgery - TRIPLE BIPASS 2011, Hx Coronary Artery Bypass Graft - 3 VESSEL 08-23-12, Hx Open Heart Surgery - 2010,AFTER UNABLE TO DO STENTS, Hx Orthopedic Surgery - Right knee replacement, Left shoulder surgery - Immunizations Hx Diphtheria, Pertussis, Tetanus Vaccination: No Hx Pneumococcal Vaccination: 09/25/14 Review of Systems - Review of Systems Constitutional: No symptoms reported EENT: No symptoms reported Cardiovascular: denies: Chest pain Respiratory: No symptoms reported Gastrointestinal: denies: Nausea, Vomiting Genitourinary: No symptoms reported Male Genitourinary: No symptoms reported Musculoskeletal: No symptoms reported Skin: No symptoms reported Hematologic/Lymphatic: No symptoms reported Neurological/Psychological: See HPI, Weakness - left sided. denies: Headaches -: Yes All other systems reviewed and negative Physical Exam - Vital signs Interpretation: Hypotensive - General General appearance: Alert In distress: Moderate - HEENT Head: Normocephalic, Atraumatic Cornea: Normal Extraocular movements intact: Yes Eyelashes: Normal Pupils: PERRL Nerve palsy: No Ears: Normal External canal: Normal Sinus: Normal Nasal: Normal Mouth/Lips: Normal Mucous membranes: Normal Pharynx: Normal Neck: Normal - Respiratory Respiratory status: No respiratory distress Chest status: Nontender Breath sounds: Normal - Cardiovascular Rhythm: Regular - NSR at 77 - Abdominal Inspection: Normal Tenderness: Nontender - Extremities General upper extremity: Normal inspection, Normal strength General lower extremity: Normal inspection, Normal strength - Neurological Neuro grossly intact: No Cognition: Normal Orientation: AAOx4 Sayre Coma Scale Eye Opening: Spontaneous Sayre Coma Scale Verbal: Oriented Higinio Coma Scale Motor: Obeys Commands Sayre Coma Scale Total: 15 Speech: Dysarthria Cranial nerves: Facial palsy Motor strength normal: LUE, LLE Additional motor exam normals: Weakness. 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 Saez (Neurologist) at [facility], states agrees with giving TPA for NIH 9, recommends flown to [facility] via [facility]. Likely will go to ED as CTA has not be performed yet. ED attending made aware and accepts for transfer as per transfer center. 08/14/19 15:58 Patent was reevaluated just before alteplase. No imporvement of symptoms. signed consent for patient. Understand risks and benefits of alteplase. Glucose wnl. BP wnl. CBC wnl. No recent surgeries or bleeding anywhere. No h/o alteplase. No seizure activity. Nurses have alteplase, will initiate. 16:10 Air transport here for patient. AVSS. MEdically stable for transfer to [facility], due to lack of Neuro and endovascular. 08/14/19 16:41 - Laboratory Result Diagrams: 08/14/19 15:35 08/14/19 15:35 Critical Care Note - Critical Care Note Total time excluding time spent on procedures (mins): 45 - evaluate and management of acute CVA patient, gave lytics, coordinated transfer. ED Alteplase Inc/Exc Criteria - Inclusion Criteria: 1: Patient presented to ED within 3 hours of acute ischemic stroke symptom onset? -: Yes 2: Did baseline CT exclude intracranial hemorrhage and/or other risk factors? -: Yes 3: Is the age of the patient 18 years of age or greater? -: Yes : If any of the above questions are answered "NO" then stop, patient is not a candidate for Alteplase, : If all of the above questions are answered "YES" then continue with Exclusion Criteria. - Exclusion Criteria: 1: Is there evidence of intracranial hemorrhage on baseline CT? -: No 2: Is there suspicion of subarachnoid hemorrhage (even if CT negative)? -: No 3: Is there a history of serious head trauma, recent previous stroke or [place] within 3 months? -: No 4: Does the patient have a clinical presentation consistent with [place] or post-[place] pericarditis? -: No 5: Is there history of intracranial hemorrhage? -: No 6: On repeated measurement is Systolic BP greater than 185mmHg or Diastolic BP greater that 110 mmHg and is aggressive treatment needed to reduce blood pressure to these limits (e.g. constant infusion of an anti-hypertensive)? -: No 7: Did the patient awake with stroke symptoms? -: No 8: Has the patient had a lumbar puncture or an arterial puncture at a non-com pressile site within 7 days? -: No 9: With in the last 14 days did the patient have surgery or major trauma? -: No 10: Is the patient or less than 2 weeks? -: No 11: Was there any active bleeding or acute trauma? -: No 12: Does the patient have intracranial neoplasm, arteriovenous malformation or aneurysm? -: No 13: Does the patient have abnormal glucose (less than 50 or greater than 400mg/dl)? Record glucose in Comment. 14: Patient has rapidly improving symptoms at the time Alteplase is to be Admin istered. -: No 15: Does the patient have any risks for bleeding, including but not limited to: a.: Current use of Coumadin with PT greater than 15 seconds or INR greater than 1.7. b.: Current use of Pradaxa (Dabigatran). c.: Heparin administereed within the past 48 hours and PTT elevated. d.: Platelet count less than 100,000/mm. e.: Major surgery or serious trauma within 14 days. f.: Gastrointestinal or gynecological urinary bleeding within 14 days. g.: Myocardial Infarction ([place]) within 3 months. -: No : If the answer to any of the above questions is "YES" then stop, the patient is not a candidate for Alteplase. : If the answer to all of the above questions is "NO" then the patient may be eligible for the Administration of Alteplase. : If the patient is noted to have seizure activity at onset of Stroke symptoms; Consult Neurologist for further evaluation. - The patient is: -: Included and is eligible to receive Alteplase. *Initiate bed placement at higher level of care* --: Yes Reviewed risks & benefits of thrombolytic therapy: I have reviewed the risks and benefits of thrombolytic therapy with the patient and/or his/her family. Yes -: Excluded and not eligible to receive Alteplase for the above exclusions. --: No -: Excluded and not eligible to receive Alteplase for other reasons (specify in comments): --: No - Diagnosis of TIA: -: Patient presented with transient symptoms that are now resolved and no other neurologic findings are currently present. List symptoms in comments. -: No -: Patient is NOT a candidate for tPA. -: No -: ____(put name in comment) has been consulted for admission and co ntinued evaluation of risk factor assessment. ED NIH Stroke Scale - NIH Stroke Scale When completed:: Before Alteplase *: 1. NIH scale should be completed with appropriate accompanying assessment tools. *: 2. The NIH should reflect what the patient is capable of doing and should not be coached by the clinician. 1a. Level of Consciousness: 0=Alert;keenly responsive -: 1=Drowsy -: 2=Obtunded -: 3=Coma/unresponsive or reflex to noxious stimuli. 1a. Responses: 0 1b. Orientation Questions: a. What month is it? -: b. How old are you? -: 0=Answers both questions correctly. -: 1=Answers one question correctly or patient is intubated or has orotracheal trauma. -: 2=Answers neither question correctly. 1b. Responses: 0 1c. Response to commands: a. Open and close eyes? -: b. Lubricating Specialist and release hand? -: Credit is given despite weakness. Demonstration of task is permitted. Substitute command if hands cannot be used. -: 0=Performs both tasks correctly -: 1=Performs one task correctly -: 2=Performs neither task correctly 1c. Responses: 0 2. Gaze: Establish eye contact and instruct patient to "Follow my finger" -: 0=Normal -: 1=Partial gaze palsy. Gaze is abnormal in one or both eyes, but where forced deviation or total gaze paresis is not present. -: 2=Forced deviation or total gaze paresis. 2. Responses: 0 3. Visual Schilling: Sees fingers in all four quadrants. -: 0=No visual loss. -: 1=Partial hemianopsia. -: 2=Complete hemianopsia. -: 3=Bilateral hemianopsia (including Cortical blindness) 3. Responses: 0 4. Facial Movement: Instruct patient to: -: a. Show me your teeth -: b. Raise your eyebrows -: c. Close your eyes -: d. Smile -: 0=Normal symmetrical movement -: 1=Minor paralysis (flattened nasolabial fold, asymmetry on smiling). -: 2=Partial paralysis (total or near total paralysis of lower face). -: 3=Complete paralysis of upper and lower face 4. Responses: 1 5. Motor functions (left arm): Alternate sides and extend each arm with palms down (90 degrees if sitting or 45 degrees for supine). -: 0=No drift;limb holds for full 10 seconds. -: 1=Drift; limb holds but drifts down before full 10 seconds, but does not hit bed. -: 2=Some effort against gravity; limb cannot get to or maintain position. -: 3=No effort against gravity; limb falls. -: 4=No movement. -: UN=Amputation, joint fusion, explain in comments. 5. Responses (left arm): 2 5. Motor Functions (right arm): Alternate sides and extend each arm with palms down (90 degrees if sitting or 45 degrees for supine). -: 0=No drift;limb holds for full 10 seconds. -: 1=Drift; limb holds but drifts down before full 10 seconds, but does not hit bed. -: 2=Some effort against gravity; limb cannot get to or maintain position. -: 3=No effort against gravity; limb falls. -: 4=No movement. -: UN=Amputation, joint fusion, explain in comments. 5. Responses (right arm): 0 6. Motor Functions (left leg): With patient lying supine, alternate sides and extend each leg (30 degrees always while supine). -: 0=No drift, leg holds position for full 5 seconds -: 1=Drift; leg falls before full 5 seconds but does not hit bed. -: 2=Some effort against gravity, leg falls to bed but some effort against gravity. -: 3=No effort against gravity, leg falls to bed immediately. -: 4=No movement. -: UN=Amputation, joint fusion; explain in comments. 6. Responses (left leg): 2 6. Motor Functions (right leg): With patient lying supine, alternate sides and extend each leg (30 degrees always while supine). -: 0=No drift, leg holds position for full 5 seconds -: 1=Drift; leg falls before full 5 seconds but does not hit bed. -: 2=Some effort against gravity, leg falls to bed but some effort against gravity. -: 3=No effort against gravity, leg falls to bed immediately. -: 4=No movement. -: UN=Amputation, joint fusion; explain in comments. 6. Responses (right leg): 0 7. Limb Ataxia: With eyes open instruct patient to: -: a. "Touch your finger to your nose". -: b. "Touch your heel to your guan" -: 0=Absent -: 1=Present in one limb. -: 2=Present in two limbs. -: UN=Amputation or joint fusion; explain in comments. 7. Responses: 2 7. If ataxia present choose as appropriate: Left arm, Left leg 8. Sensory: Test sensation using pinprick or noxious stimuli. Test as many body parts as possible. -: 0=Normal;no sensory loss -: 1=Mile to moderate sensory loss (patient feels pin prick but is less sharp on affected side). -: 2=Severe or total sensory loss. 8. Responses: 0 9. Best Language: Instruct patient to: -: a. "Describe what you see in this picture." -: b. "Name the items in this picture." -: c. "Read these sentences." -: 0=No aphasia, normal -: 1=Mild to moderate aphasia. -: 2=Severe aphasia -: 3=Mute, global aphasia, no usable speech or auditory comprehension. 9. Responses: 1 10. Articulation, Dysarthia: Instruct patient to: -: "Read these words" or "Repeat these words" -: 0=Normal -: 1=Mild to moderate; patient may slur some words but can be understood without difficulty. -: 2=Severe; patients speech so slurred as to be unintelligible in the absence of dysphasia. -: UN=Intubated or other physical barrier, explain in comments. 10. Responses: 1 11. Extinction or inattention: 0=No abnormality -: 1= Visual, tactile, auditory, spatial, or personal inattention or extinction to bilateral simulation in one or the sensory modalities. -: 2=Profound milan-inattention or milan-inattention to more than one modality; does not recognize own hand. 11. Responses: 0 Total Score: 9 Discharge - Discharge Clinical Impression: Acute CVA (cerebrovascular accident) Condition: Stable Disposition: [facility] Referrals: RJ BROWN MD [Primary Care Provider] - Follow up as needed I personally performed the services described in the documentation, reviewed and edited the documentation which was dictated to the scribe in my presence, and it accurately records my words and actions.
--- NOTE | 2019-08-14 20:28 | EKG REPORT ---
SEVERITY:- ABNORMAL ECG - ACCELERATED JUNCTIONAL RHYTHM PROLONGED QT INTERVAL : Confirmed by: Isiah Mayers MD 14-Aug-2019 20:27:40
== END 2019-08-14 16:25 | disposition short-term general hospital (02) ==
LOC: ER 15:09
DX: I63.9 Cerebral infarction, unspecified (principal); G81.94 Hemiplegia, unspecified affecting left nondominant side; R47.1 Dysarthria and anarthria; I10 Essential (primary) hypertension; R29.709 NIHSS score 9; G20 Parkinson's disease; I25.10 Atherosclerotic heart disease of native coronary artery without angina pectoris; E11.9 Type 2 diabetes mellitus without complications; Z95.1 Presence of aortocoronary bypass graft; Z79.02 Long term (current) use of antithrombotics/antiplatelets; Z87.891 Personal history of nicotine dependence
CPT/HCPCS: 93005; 36415; 82553; 82962; 82550; 85025; 85610; 85730; 80053; 84484; 71045; 70450; 93010; J2997; J7040; 96361; 96374; 99285